=== PATIENT | male | born 1945 | race Two or more races ===

== ENCOUNTER 2024-09-04 19:21 | Inpatient (IN) | payer MEDICARE, MEDICAID, SELFPAY ==
[2024-09-04] VITALS (8 sets, daily range): BP systolic 95–158; BP diastolic 49–109; PULSE 58–78; RESP 6–18; TEMP 36.9–37; O2SAT 94–100; BMI 25.7
--- NOTE | 2024-09-04 19:22 | EKG_ITS ---
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
--- NOTE | 2024-09-04 19:22 | XR_ITS ---
Examination: CT brain head without contrast. 2-D sagittal coronal reconstructions Date and time of exam:September 04, 2024 1927 hours Comparison July 05, 2012 INDICATIONS: Stroke alert, altered mental status today onset focal neurologic deficit CTDI: vol (mGy):53.8 DLP: (mGycm):1123 Technique: Multiple CT axial sections of the brain have been obtained, 5 mm slice thickness. Contrast has not been administered. 2-D sagittal, coronal reconstructions have been obtained Low dose protocols were performed. One or more of the following dose reduction techniques were used; automated exposure control, adjustment of the mA and/or KV according to patient size, use of iterative reconstruction technique. Findings: No significant ventricular enlargement. Intra-axial or extra-axial hemorrhage density is not seen. No mass effect or midline shift Basal cisterns are not remarkable. Fourth ventricle is midline. Cranial vault intact. Impression: Negative for acute hemorrhage, mass effect or midline shift
--- NOTE | 2024-09-04 19:22 | PD.EDNEURO ---
Neuro Symptoms Deficit-RME/HPI General Chief Complaint: Altered Mental Status Stated Complaint: STROKE Time Seen by Provider: 09/04/24 19:22 Source: EMS Arrival date/time: 09/04/24 19:21 Mode of arrival: EMS Limitations: altered mental status RME / HPI RME / HPI Narrative: Dr. Brown?s Main ED Evaluation: 78-year-old male with h/o DM2, HTN, HLD, Parkinson's disease who presents to the ER with chief complaint of neurological symptoms. Per EMS, family reported patient is GCS of 15 at baseline. At 1800 today, patient reported he was feeling unwell and was asking for his . About 20 minutes later, he had urinary incontinence and mentation become altered with GCS of 3. EMS reports BP reading of 220/120 on scene. Complete HPI/ROS is unobtainable secondary to patient's altered mental status. Related Data Previous Rx's ?Medication ?Instructions ?Recorded librium 25mg 1 tab PO tid/prn alcohol w/d ##30 07/05/12 Allergies Allergy/AdvReac Type Severity Reaction Status Date / Time NKA Allergy Unknown Uncoded 09/04/24 19:30 Review of Systems Review of Systems ROS Unobtainable: unobtainable due to mental status ED Exam Narrative Physical exam: Examination: BP(220/118),?Pulse(77),?Blood Glucose(379) 1A: Level of Consciousness - Alert; keenly responsive?+ 0 1B: Ask Month and Age - 1 Question Right?+ 1 1C: Blink Eyes & Squeeze Hands - Performs Both Tasks?+ 0 2: Test Horizontal Extraocular Movements - Normal?+ 0 3: Test Visual Castelan - Complete Hemianopia?+ 2 4: Test Facial Palsy (Use Grimace if Obtunded) - Normal symmetry?+ 0 5A: Test Left Arm Motor Drift - Drift, but doesn't hit bed?+ 1 5B: Test Right Arm Motor Drift - Drift, but doesn't hit bed?+ 1 6A: Test Left Leg Motor Drift - Amputation/Joint Fusion?+ 0 6B: Test Right Leg Motor Drift - Drift, but doesn't hit bed?+ 1 7: Test Limb Ataxia (FNF/Heel-Brooke) - Does Not Understand?+ 0 8: Test Sensation - Normal; No sensory loss?+ 0 9: Test Language/Aphasia - Normal; No aphasia?+ 0 10: Test Dysarthria - Mild-Moderate Dysarthria: Slurring but can be understood?+ 1 11: Test Extinction/Inattention - No abnormality?+ 0 NIHSS Score:?7 GENERAL APPEARANCE: Primary survey: patient has severe resting tremor. He is conscious but nonverbal. He does not track me with his eyes. Secondary survey: after patient was given ativan, the tremor resolved. He appears somewhat sedated from the 2 ativan he received. Patient has left BKA with prosthesis. VITALS: All vitals were reviewed and the pulse ox is 100% on room air, which is normal according to my interpretation. HEENT: Normocephalic, atraumatic; pupils equal, round, reactive to light; EOMI; mucous membranes pink, moist; oropharynx clear NECK: Supple LUNGS: CTABL; no wheezes, no rales, no rhonchi HEART: Regular rate, regular rhythm; normal S1, S2; no murmurs ABDOMEN: non distended; normal BS; soft, no tenderness, no guarding, no rebound; no masses, no organomegaly, no hernia BACK: no CVA tenderness EXTREMITIES: atraumatic; no edema NEUROLOGIC: Primary survey: patient has severe resting tremor. He is conscious but nonverbal. He does not track me with his eyes. Secondary survey: after patient was given ativan, the tremor resolved. He appears somewhat sedated from the 2 ativan he received. PSYCHIATRIC: appropriate mood and affect SKIN: warm, dry, normal color; no rashes General Limitations: Present altered mental status Course Course Course Narrative: 1919 Stroke alert paged overhead 2007 Repeat blood pressure is 126/62 Quality Measures Suspected type of Stroke: Unknown at this time Last known well (date): 09/04/24 Last known well (time): 18:00 Tenecteplase given: Reason(s) TPA not given: Uncontrolled BP not given stroke and none Orders Category Date Time Status Bedside Blood Glucose NOW Care 09/04/24 19:22 Active Hemodialysis Lab Technician NOW Care 09/04/24 19:22 Active Continuous Pulse Oximetry NOW Care 09/04/24 19:22 Active EKG (ED ONLY) *Do not use* NOW Care 09/04/24 19:22 Completed In and Out Catheter NEEDED Care 09/04/24 19:22 Active Insert IV NOW Care 09/04/24 19:22 Active NIH Stroke Scale now Care 09/04/24 19:22 Active NPO NOW Care 09/04/24 19:22 Active Nurse Swallow Screen x1 Care 09/04/24 19:22 Active Consult to Neurology / Tele-Neurology Routine Cons 09/04/24 19:22 Active Consult to Neurology / Tele-Neurology Routine Cons 09/04/24 19:[address] angio stroke protocol Stat Exams 09/04/24 19:[address] stroke protocol Stat Exams 09/04/24 19:22 Completed EKG (ED Only) Stat Exams 09/04/24 19:22 Draft B-Type Natriuretic Peptide Stat Lab 09/04/24 19:25 Completed CBC Stat Lab 09/04/24 19:25 Completed Comprehensive Metabolic Panel Stat Lab 09/04/24 19:25 Results Drug Screen,Urine Stat Lab 09/04/24 19:22 Ordered Free T4 (Free Thyroxine) Stat Lab 09/04/24 21:02 Ordered HCG Titer if Positive Stat Lab 09/04/24 19:25 Results Magnesium Stat Lab 09/04/24 19:25 Results Partial Thromboplastin Time Stat Lab 09/04/24 19:25 Completed Prothrombin Time with INR Stat Lab 09/04/24 19:25 Completed Troponin I Stat Lab 09/04/24 19:25 Results Urinalysis Stat Lab 09/04/24 19:22 Ordered Urine Culture Stat Lab 09/04/24 19:22 Ordered Aspirin Med 09/04/24 20:21 Discontinued 325 mg PO X1 ONE LORazepam [Ativan Inj] Med 09/04/24 19:39 Active 2 mg IVP PRN PRN Oxygen Delivery NOW RT 09/04/24 19:22 Active Vital Signs Vital signs: Vital Signs Temperature 98.6 F 09/04/24 20:19 Pulse Rate 72 09/04/24 20:19 Respiratory Rate 18 09/04/24 20:19 Blood Pressure 158/109 H 09/04/24 20:19 Pulse Oximetry (%) 100 09/04/24 20:19 Oxygen Delivery Method Room Air 09/04/24 20:19 Neuro Symptoms / Deficit MDM Narrative MDM Narrative:: 78-year-old male with history of DM2, HTN, HLD, Parkinson's who presents to ER via EMS for neurological symptoms. Family reports at baseline patient has GCS of 15 however upon EMS arrival he had GCS of 3. LKWT was approximately 1800. Narcan was administered without improvement. Family denies any history of narcotic use. Patient was immediately seen by me upon arrival and I assessed the patient in the ambulance bay. After my assessment, I initiated stroke protocol and it was paged overhead. Patient was then taken to radiology STAT per stroke protocol. Initial work-up includes IV access, continuous cardiac monitoring, EKG, stroke scale, bedside blood glucose check, I&O cath, NPO, nurse swallow screen, teleneuro consultation, imaging including CTA head/neck and head CT, labs such as UDS, PTT, PT with INR, troponin, BNP, CBC, CMP, HCG titer, magnesium, UA with FACILITY ENVIRONMENTAL TECHNICIAN, and respiratory therapy. Medications initiated include lorazepam. Manual EKG taken at 2008 shows severe motion artifact due to patient's resting tremor, normal sinus rhythm at 76 bpm, left axis deviation, no ectopy, no acute signs of ischemia, according to my interpretation. 1949 Teleneuro is at bedside with daughter for consultation. NIHSS Score:?7. 2002 Received t/c from teleneurologist, Dr. Elif Laughlin, who states given the patient's presentation and history, this may be metabolic. Advised for inpatient admission for observation, EEG and possible MRI. Case to be discussed with hospitalist for admission. 2034 Case d/w Belinda Higgins who accepts the patient for inpatient admission. Scribe Attestation: I, Mikaela Murguia, am scribing for and in the presence of Dr. Brown. Provider Notation: Although this document has been carefully reviewed, there may still be some phonetic and other typographical errors. These errors are purely grammatical due to imperfections in the software program and should not be construed in any way to compromise the substance of the patient's medical care during this visit. Patient data External records reviewed:: None Clinical information provided by:: EMS Social determinants that could affect healthcare access:: none Patient has the following chronic illnesses:: HTN. DM2, HLD, Parkinson's Disease How is presenting disease/condition affected by chronic disease/condition?: uneffected by Evaluation data The following diagnostics were reviewed and interpreted by me:: lab results, radiology exam(s) and EKG tracing(s) Lab and/or radiology exams considered but not ordered:: n/a Interpretation Summary: I personally reviewed the radiology data and agree with the radiologist's interpretation. Examination: CT brain head without contrast. Date and time of exam:September 04, 2024 1927 hours Comparison July 05, 2012 INDICATIONS: Stroke alert, altered mental status today onset focal neurologic deficit Findings: No significant ventricular enlargement. Intra-axial or extra-axial hemorrhage density is not seen. No mass effect or midline shift Basal cisterns are not remarkable. Fourth ventricle is midline. Cranial vault intact. Impression: Negative for acute hemorrhage, mass effect or midline shift Examination: CTA carotids with intravenous contrast; CTA brain, head with intravenous contrast. Exam date and time: September 04, 20241926 hours INDICATIONS: Stroke alert, onset focal neurologic deficit uncontrollable movement today altered mental status Findings: Heavy calcification right carotid bifurcation, 40-60% stenosis right carotid bifurcation origin right internal carotid artery Heavy calcification left carotid bifurcation, 60-80% stenosis left carotid bifurcation and origin left internal carotid artery Codominant vertebral arteries with no critical stenoses Intracranial vertebral arteries and basilar artery posterior cerebral branches show no large vessel occlusions Very heavy calcification juxtasellar internal carotid arteries bilateral with 50-70% stenosis No large vessel occlusions involving M1 segments middle cerebral arteries middle cerebral artery trifurcation vessels or anterior cerebral arteries IMPRESSION: 40-60% stenosis right carotid bifurcation origin right internal carotid artery 60-80% stenosis left carotid bifurcation origin left internal carotid artery Bilateral 50-70% stenosis juxtasellar internal carotid arteries No cerebral large vessel arterial occlusions or thromboses Medications / Prescriptions Medications or Prescriptions considered but not ordered:: n/a Medication administrations:: Medication Administration History Lorazepam (Lorazepam 2 Mg/Ml Vial) 2 mg IVP PRN PRN PRN Reason: Seizure Activity Stop: 09/09/24 19:38 Last Admin: 09/04/24 20:39 Dose: 2 mg Documented By: LUCY Discontinued Medications Aspirin (Aspirin 325 Mg Tablet) 325 mg PO X1 ONE Stop: 09/04/24 20:22 Last Admin: 09/04/24 20:38 Dose: 325 mg Documented By: LUCY as above, if any Consultations Consultation(s) initiated? (list below): Yes Consultation #1 (Physician, Specialty, Details): See MDM Diagnosis Neuro Differential Diagnosis: other (Hemorrhagic CVA, Ischemic CVA, SDH, Seizure) Most likely diagnosis given after review of the tests above:: See clinical impression below Admission Indicated Admission indicated?: indicated Admission Request Was there a request for admission?: Yes Admission Attestation Admission request attestation: Discussed case with [] from Hospitalist service regarding admission. Discussed patients ED course, exam findings, labs, and radiology results. The Hospitalist [agrees,declines] to accept the patient for admission. Disposition Plan Disposition Plan: Admit Critical Care Time Critical Care Time Critical Care Time: Yes Total Critical Care Time (min.): 45 Attestation: The high probability of sudden, clinically significant deterioration in the patient?s condition required the highest level of my preparedness to intervene urgently. ? The services I provided to this patient were to treat and/or prevent clinically significant deterioration. Services included the following: chart data review, reviewing nursing notes and/or old charts, documentation time, storage management consultant collaboration regarding findings and treatment options, medication orders and management, direct patient care, vital sign assessments and ordering, interpreting and reviewing diagnostic studies and lab tests. ? Aggregate critical care time includes only time during which I was engaged in work directly related to the patient?s care, as described above, whether at bedside or elsewhere in the Emergency Department. It did not include time spent performing other reported procedures or the services of residents, students, nurses or physician assistants. Discharge Plan Plan Patient Disposition: Admit Acute Care w/in Hospital Prescriptions/Referrals Prescriptions/Med Rec: No Action librium 25mg 1 tab PO tid/prn alcohol w/d Qty: 30 0RF Referrals: No Primary/Family,Physician [Primary Care Provider] - In 1 week Problem List Clinical Impression: Seizures Patient/Caregiver Discharge Instructions Print Language: Lithuanian Stand Alone Forms: Eva Award Info., Patient Portal Info Letter
--- NOTE | 2024-09-04 19:23 | XR_ITS ---
Examination: CTA carotids with intravenous contrast CTA brain, head with intravenous contrast. 2-D sagittal, coronal reconstructions. 3-D reconstructions. Exam date and time: September 04, 2024, 192 hours INDICATIONS: Stroke alert, onset focal neurologic deficit uncontrollable movement today altered mental status CTDI: vol (mGy) 25.9 DLP: (mGycm) 503 Technique: Multiple CTA axial brain, head carotid images post intravenous contrast injection 75 cc, [id number]. 2-D sagittal, coronal reconstructions. 3-D reconstructions, 3-D post processing including vascular maximum intensity projection images. Low dose protocols were performed. One or more of the following dose reduction techniques were used; automated exposure control, adjustment of the mA and/or KV according to patient size, use of iterative reconstruction technique. Findings: Heavy calcification right carotid bifurcation, 40-60% stenosis right carotid bifurcation origin right internal carotid artery Heavy calcification left carotid bifurcation, 60-80% stenosis left carotid bifurcation and origin left internal carotid artery Codominant vertebral arteries with no critical stenoses Intracranial vertebral arteries and basilar artery posterior cerebral branches show no large vessel occlusions Very heavy calcification juxtasellar internal carotid arteries bilateral with 50-70% stenosis No large vessel occlusions involving M1 segments middle cerebral arteries middle cerebral artery trifurcation vessels or anterior cerebral arteries IMPRESSION: 40-60% stenosis right carotid bifurcation origin right internal carotid artery 60-80% stenosis left carotid bifurcation origin left internal carotid artery Bilateral 50-70% stenosis juxtasellar internal carotid arteries No cerebral large vessel arterial occlusions or thromboses
--- NOTE | 2024-09-04 19:24 | PC.NURSE ---
Tele neuro case # [id number]
[2024-09-04 19:41] LABS: Basophils % (Auto) 1 % (0-2.5); Eosinophils # (Auto) 0.2 Thou/mm3 (0.0-0.5); Eosinophils % (Auto) 3 % (0-10); Hematocrit 30.9 % (41.0-53.0); Hemoglobin 11.1 g/dL (13.5-16.0); Immature Granulocytes % (Auto) 0 % (0-0); Immature Granulocytes Auto 0.01 Thou/mm3 (0.00-0.00); Lymphocytes % (Auto) 31 % (10-50); Mean Corpuscular HGB Conc 35.9 g/dl (31.0-37.0); Mean Corpuscular Volume 86 fL (80-100); Monocytes # (Auto) 0.3 Thou/mm3 (0.0-0.8); Monocytes % (Auto) 5 % (0-12); Neutrophils # (Auto) 3.8 Thou/mm3 (1.8-7.7); Neutrophils % (Auto) 60 % (37-80); Nucleated Red Blood Cell % 0 /100 WBC (0); Platelet Count 217 Thou/mm3 (140-440); RDW Standard Deviation 38.7 fL (35.1-43.9); Red Blood Count 3.58 Miln/mm3 (4.50-5.90); White Blood Count 6.4 Thou/mm3 (3.8-10.6)
[2024-09-04 19:55] LABS: Partial Thromboplastin Time 25.4 Seconds (22.0-36.0); Prothrombin Time 11.2 Seconds (9.0-12.2)
[2024-09-04 20:02] LABS: Alanine Aminotransferase 13 U/L (10-49); Albumin, Serum 3.9 gm/dL (3.4-4.8); Albumin/Globulin Ratio 1.6 (1.2-2.2); Alkaline Phosphatase 74 U/L (46-116); Anion Gap 9 (7-16); Aspartate Amino Transferase 16 U/L (0-34); BUN/Creatinine Ratio 17 Ratio (12-20); Bilirubin,Total 0.5 mg/dL (0.3-1.2); Blood Urea Nitrogen 27 mg/dL (9-23); Calcium 9.3 mg/dL (8.3-10.6); Calcium (Corrected) 9.4 mg/dL (8.5-10.1); Carbon Dioxide 24.3 mMol/L (20.0-31.0); Chloride 101 mMol/L (98-107); Creatinine (Component) 1.6 mg/dL (0.6-1.3); Globulin 2.5 gm/dL (2.3-3.5); Glucose 386 mg/dL (74-106); Magnesium 2.1 mg/dL (1.6-2.6); Osmolality,Calculated 289 (275-295); Potassium 4.3 mMol/L (3.4-5.1); Sodium 134 mMol/L (136-145); Total Protein 6.4 gm/dL (5.7-8.2); Troponin I < 0.020 ng/mL (0.0-0.045); eGFR 44 See Note
[2024-09-04 20:06] LABS: B-Type Natriuretic Peptide 115 pg/mL (0-100)
--- NOTE | 2024-09-04 20:16 | ESCONSULT_ITS ---
Tele Neuro Consultation Consultation Date 09/04/24 Laboratory-Coagulation Panel PT 11.2 Seconds (9.0-12.2) 09/04/24 19:25 INR 1.0 (0.9-1.3) 09/04/24 19:25 APTT 25.4 Seconds (22.0-36.0) 09/04/24 19:25 Consultation Narrative [facility] Consult [facility] Patient Name:???Henrry Cruz Date of :???1945 Identification Number:??? Date of Service:???09/04/2024 19:24:15 Diagnosis:?G93.49 - Encephalopathy Multifactorial Impression: ?Patient presented with acute altered mental status, GCS drop from 15 to 4- 5, and possible seizure activity. Initial examination revealed left pupil abnormality, hyperglycemia (blood sugar 379, 480), hypertension (220/118), and hypoxia (O2 sat 59-60%). History significant for Parkinson's disease, diabetes, hypertension, and hyperlipidemia. Differential diagnosis includes toxic metabolic encephalopathy secondary to severe hyperglycemia, seizure disorder, and less likely, acute stroke/TIA. Patient demonstrated improvement in mental status during evaluation, becoming responsive and reporting whole body pain. Neurological exam showed bilateral movement of extremities and ability to follow commands. CT head was performed no acute events, CTA pending for official reports. Patient has a left leg amputation. Our recommendations are outlined below. Recommendations: ? Stroke/Telemetry Floor ? Neuro Checks ? Bedside Swallow Eval ? DVT Prophylaxis ? IV Fluids, Normal Saline ? Head of Bed 30 Degrees ? Euglycemia and Avoid Hyperthermia (PRN Acetaminophen) ? Initiate or continue Aspirin 81 MG daily Sign Out: ? Discussed with Emergency Department Provider Advanced Imaging:Advanced imaging has been ordered. Results pending. Metrics: Last Known Well: 09/04/2024 18:00:00 Dispatch Time: 09/04/2024 19:24:15 Arrival Time: 09/04/2024 19:21:00 Initial Response Time: 09/04/2024 19:25:55Symptoms: AMS. Initial patient interaction: 09/04/2024 19:47:04 NIHSS Assessment Completed: 09/04/2024 19:55:00Patient is not a candidate for Thrombolytic. Thrombolytic Medical Decision: 09/04/2024 19:55:00Patient was not deemed candidate for Thrombolytic because of following reasons: Resolved symptoms . Seizure at onset with postictal residual neurological impairments . CT head showed no acute hemorrhage or acute core infarct. Primary Provider Notified of Diagnostic Impression and Management Plan on: 09/04/2024 20:00:49 History of Present Illness:Patient is a 78 year old Male. Patient was brought by EMS for symptoms of AMS. The patient, Mr. Cruz, presented with altered mental status and possible seizure activity. At approximately 1800 hours, he began feeling unwell, became altered, and asked for his who was present. He then laid down, urinated on himself, and his [place] Coma Scale (GCS) dropped from his baseline of 15 to 4- 5, becoming unresponsive. 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 His initial vital signs showed a blood sugar of 379, blood pressure of 220/118, oxygen saturation of 91%, and heart rate of 77. The patient's child reported that around 1800, the patient became agitated, screaming, and being loud, which was noted as unusual behavior. The son checked the patient's blood sugar, which was 480, and administered 12 units of insulin. The patient continued to be agitated, stating he didn't want to be there anymore and requesting to be taken to the hospital before losing consciousness. The patient regained consciousness and reported experiencing whole body pain. He described feeling like he was drowning and stated that he sometimes experiences strong headaches and body pain that makes him cry. The patient also reported a new tremor that doesn't go away and difficulty sitting down at times. He mentioned feeling weak and having trouble feeding himself, stating that he feels hungry but lacks the strength to chew food. The patient's past medical history is significant for Parkinson's disease, diabetes, hypertension, and hypercholesterolemia. He has a history of frequent falls and reports having had a lot of ?seizures in the past, though he is not currently taking any anti-epileptic medications. 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 ? Past Medical History: ?Hypertension ?Diabetes Mellitus ?Hyperlipidemia Other PMH:? Parkinson unable to obtain due to:?? Patient Is Confused Medications: No Anticoagulant use? No Antiplatelet use Reviewed EMR for current medications Allergies:? Reviewed Allergies Unable To Obtain Due To:?Patient Is Confused Social History: Unable To Obtain Due To Patient Status :?Patient Is Confused Family History: Family History Cannot Be Obtained Because:Patient Is Confused ROS :?ROS Cannot Be Obtained Because:? Patient Is Confused Past Surgical History: Past Surgical History Cannot Be Obtained Because: Patient Is Confused There Is No Surgical History Contributory To Today?s Visit ? Examination: BP(220/118),?Pulse(77),?Blood Glucose(379) 1A: Level of Consciousness - Alert; keenly responsive?+ 0 1B: Ask Month and Age - 1 Question Right?+ 1 1C: Blink Eyes & Squeeze Hands - Performs Both Tasks?+ 0 2: Test Horizontal Extraocular Movements - Normal?+ 0 3: Test Visual Castelan - Complete Hemianopia?+ 2 4: Test Facial Palsy (Use Grimace if Obtunded) - Normal symmetry?+ 0 5A: Test Left Arm Motor Drift - Drift, but doesn't hit bed?+ 1 5B: Test Right Arm Motor Drift - Drift, but doesn't hit bed?+ 1 6A: Test Left Leg Motor Drift - Amputation/Joint Fusion?+ 0 6B: Test Right Leg Motor Drift - Drift, but doesn't hit bed?+ 1 7: Test Limb Ataxia (FNF/Heel-Brooke) - Does Not Understand?+ 0 8: Test Sensation - Normal; No sensory loss?+ 0 9: Test Language/Aphasia - Normal; No aphasia?+ 0 10: Test Dysarthria - Mild-Moderate Dysarthria: Slurring but can be understood?+ 1 11: Test Extinction/Inattention - No abnormality?+ 0 NIHSS Score:?7 Pre-Morbid Modified Regino Scale:Unable to assess Spoke with :?LAURENCE Salazar This consult was conducted in real time using interactive audio and video technology. Patient was informed of the technology being used for this visit and agreed to proceed. Patient located in hospital and provider located at home/office setting. Patient is being evaluated for possible acute neurologic impairment and high probability of imminent or life-threatening deterioration. I spent total of 45 minutes providing care to this patient, including time for face to face visit via telemedicine, review of medical records, imaging studies and discussion of findings with providers, the patient and/or family. Dr Elif Laughlin [facility] For Inpatient follow-up with [facility] physician please call [facility] at . As we are not an outpatient service for any post hospital discharge needs please contact the hospital for assistance. If you have any questions for the [facility] physicians or need to reconsult for clinical or diagnostic changes please contact us via [facility] at .
[2024-09-04] MEDS: Aspirin 325 MG TABLET PO (20:38)
[2024-09-04] MEDS: LORazepam 2 MG/ML VIAL IVP (20:39)
[2024-09-04 21:57] LABS: HCG Titer if Positive Negative
--- NOTE | 2024-09-04 22:39 | PD.RESHP ---
Documentation for date of: 09/04/24 [facility] History of Present Illness Chief complaint: altered mental status History of present illness: The patient is a 78-year-old male with a previous medical history of type 2 diabetes, hypertension, hypothyroidism, Parkinson's disease who was brought in due to altered mental status daughter at the bedside she reports that the patient started to report pain in his whole body, reported feeling unwell at approximately 6 PM, approximately 20 minutes later he had an episode of urine incontinence, became altered. EMS was called, patient had GCS of 3, blood pressure 200/120, he also had a high blood sugar over 400, family member gave him Lantus 12 units. In the ED initially had blood pressure 220/120, Narcan was given without improvement. Stroke alert was called, CT head was negative for intracranial bleed, fracture, acute stroke, CTA was negative for large vessel occlusion. Teleneuro was consulted, differential diagnosis is acute encephalopathy of toxic or metabolic nature, acute stroke less likely. Patient was also given lorazepam 2 mg. EKG showed sinus rhythm, heart rate 76. According to the daughter, in the ED patient came back to his baseline, but still sleepy after Ativan. Per daughter, he is usually AOx3. She also endorsed that he has chronic diarrhea after eating dairy. Labs: WBC 6.4, hemoglobin 11.1, sodium 134, potassium 4.3, BUN 27, creatinine 1.6, EGFR 44, glucose 384, magnesium 2.1, BNP 115. U tox, UA is pending. Patient is being admitted to the hospital for acute encephalopathy and stroke rule out. Social history: denies recent alcohol use, drugs. According to the daughter, he used to use crack cocaine approximately 10 years ago. Surgical history: R sided foot amputation, L sided BKA. Medications: Folic acid 1 mg, vitamin D, insulin glargine 14 units at bedtime, lispro sliding scale, levothyroxine 75 mcg, metformin 1000 twice daily, tamsulosin 0.4 p.o. daily. Review of Systems Review of Systems ROS Unobtainable: unobtainable due to mental status Past Medical History Past Medical History NEUROLOGIC: Positive Parkinson's Disease CARDIAC: Positive Hypertension GENITOURINARY: Positive Genitourinary Disorders (urinary retention) ENDOCRINE: Positive Endocrine Disorders, Diabetes Mellitus Type 2 and Hypothyroidism Exam Vital Signs Temp Pulse Resp BP Pulse Ox O2 Del Method 98.6 F 78 18 158/109 H 100 Room Air 09/04/24 20:19 09/04/24 22:14 09/04/24 20:19 09/04/24 20:19 09/04/24 20:19 09/04/24 20:19 Narrative Exam Physical Exam General: Somnolent. AOx1. HEENT: Normocephalic, atraumatic, mucous membranes moist. Heart: Regular rate and rhythm, no murmurs. Lungs: Clear to auscultation with no wheezing or crackles. Abdomen: Soft, nondistended, nontender, positive bowel sounds. ?No guarding or rebound tenderness. Neurologic: Alert and oriented x1, no gross neurological deficit, and patient able to move all 4 extremities. Extremities: LEft sided BKA, right sided foot amputation. Skin: No rash or ecchymoses. Results: Labs 09/04/24 19:25 09/04/24 19:25 Labs: Short CBC 09/04/24 Range/Units 19:25 WBC 6.4 (3.8-10.6) Thou/mm3 Hgb 11.1 L (13.5-16.0) g/dL Hct 30.9 L (41.0-53.0) % Plt Count 217 (140-440) Thou/mm3 BMP 09/04/24 19:25 Sodium 134 L Potassium 4.3 Chloride 101 Carbon Dioxide 24.3 BUN 27 H Creatinine 1.6 H Glucose 386 H Calcium 9.3 Cardiac Enzymes 09/04/24 Range/Units 19:25 Troponin I < 0.020 (0.0-0.045) ng/mL Liver Function 09/04/24 Range/Units 19:25 Total Bilirubin 0.5 (0.3-1.2) mg/dL AST 16 (0-34) U/L ALT 13 (10-49) U/L Alkaline Phosphatase 74 (46-116) U/L Albumin 3.9 (3.4-4.8) gm/dL Quality Measures Quality Measures stroke Suspected type of Stroke: Unknown at this time Last known well (date): 09/04/24 Last known well (time): 18:00 Tenecteplase given: Reason(s) Tenecteplase not given: Uncontrolled BP not given Rehab services: Speech Language Pathology eval ordered VTE Prophylaxis: pharmaceutical Antithrombotic by day 2:: ordered Statin ordered: >75 y/o moderate or high intensity dose Anticoagulation ordered for A-fib or flutter (current or hx): not indicated and none Advance care planning discussed with:: child Medications Home Medications and Allergies Home Medications ?Medication ?Instructions ?Recorded ?Confirmed ?Type ergocalciferol (vitamin D2) 1,250 1,250 mcg PO QDAY 09/04/24 09/04/24 History mcg (50,000 unit) capsule (Vitamin D2) folic acid 1 mg tablet 1 mg PO QDAY 09/04/24 09/04/24 History hydroxyzine HCl 25 mg tablet 25 mg PO BID 09/04/24 09/04/24 History insulin glargine 100 unit/mL (3 14 unit subcut QPM 09/04/24 09/04/24 History mL) subcutaneous pen (Lantus Solostar U-100 Insulin) insulin lispro 100 unit/mL 1 sliding scale dose subcut 09/04/24 09/04/24 History subcutaneous pen (Humalog KwikPen USEASDIRECTD (U-100) Insulin) levothyroxine 75 mcg tablet 75 mcg PO QDAY 09/04/24 09/04/24 History (Euthyrox) metformin 1,000 mg tablet 1,000 mg PO BID 09/04/24 09/04/24 History tamsulosin 0.4 mg capsule 0.4 mg PO QDAY 09/04/24 09/04/24 History Allergies Allergy/AdvReac Type Severity Reaction Status Date / Time NKA Allergy Unknown Uncoded 09/04/24 19:30 Visit Medications Acetaminophen (Acetaminophen 325 Mg Tablet) 650 mg PO Q6H PRN PRN Reason: Fever >100.3 or pain 1-3 Stop: 10/04/24 21:56 Aspirin (Aspirin Ec 81 Mg Tabec) 81 mg PO QDAY KAYLA Stop: 10/05/24 08:59 Dextrose (Dextrose 50%-Water Inj 50 Ml Syringe) 25 ml IV Q15MIN PRN PRN Reason: BG 50-70 responsive npo pt Stop: 10/04/24 22:12 Dextrose (Dextrose 50%-Water Inj 50 Ml Syringe) 50 ml IV Q15MIN PRN PRN Reason: BG <50 OR BG <70 & pt unresponsive Stop: 10/04/24 22:12 Heparin Sodium (Porcine) (Heparin Sod Inj 5000 Unit/Ml Vial) 5,000 unit SC Q8HR KAYLA Stop: 09/18/24 21:59 Insulin Glargine (Insulin Glargine (Lantus) 5 Unit/0.05 Ml (Per 5 Units)) 7 unit SC HS KAYLA Stop: 10/04/24 22:14 Insulin Human Lispro (Insulin Lispro (Admelog) 1 Unit/0.01 Ml Unit) 0 unit SC Q6HR KAYLA; Protocol Stop: 10/05/24 00:00 Levothyroxine Sodium (Levothyroxine Sodium 25 Mcg Tablet) 75 mcg PO ACBR KAYLA Stop: 10/05/24 05:59 Lorazepam (Lorazepam 2 Mg/Ml Vial) 2 mg IVP PRN PRN PRN Reason: Seizure Activity Stop: 09/09/24 19:38 Last Admin: 09/04/24 20:39 Dose: 2 mg Ondansetron HCl (Ondansetron Inj 2 Mg/Ml Inj 2 Ml) 4 mg IV Q6H PRN; Protocol PRN Reason: NAUSEA OR VOMITING Stop: 10/04/24 21:56 Sennosides (Senna Tablet) 1 tab PO QDAY PRN; Protocol PRN Reason: constipation Stop: 10/04/24 21:56 Tamsulosin HCl (Tamsulosin Hcl 0.4 Mg Capsule) 0.4 mg PO QDAY KAYLA Stop: 10/05/24 08:59 Discontinued Medications Aspirin (Aspirin 325 Mg Tablet) 325 mg PO X1 ONE Stop: 09/04/24 20:22 Last Admin: 09/04/24 20:38 Dose: 325 mg Assessment & Plan Plan The patient is a 78-year-old male with a previous medical history of type 2 diabetes, hypertension, hypothyroidism, Parkinson's disease who was brought in due to altered mental status. Patient is being admitted to the hospital for acute encephalopathy and stroke tule out. #Acute encephalopathy #Stroke rule out #Altered mental status DDx: Metabolic vs toxic encephalopathy vs acute stroke Patient had an episode of altered mentation when he reported feeling pain and being unwell, then became non-responsive with GCS of 3. In the ED his mental status has improved. He also received Ativan IV. CT head negative for stroke, intracranial bleeding. CTA negative for LVO. Teleneuro consulted, appreciate recommendations. Plan: -Telemetry Floor -Neuro Checks q 4 hr -Bedside Swallow Eval -DVT Prophylaxis -Head of Bed 30 Degrees -Maintain euglycemia and avoid hyperthermia (PRN Acetaminophen) - Aspirin 81 MG daily - B12, TSH, folate, A1c - Utox ordered - Blood alcohol level - Dr. Montoya consulted # Hypertensive urgency versus emergency Initial BP was >200, then went down to 136/49 without intervention Plan: -Antihypertensives on hold for now due to normal BP #Type 2 diabetes Patient at home is on Lantus 14U and sliding scale lispro. Plan: - glargine 7 U HS daily - Insulin sliding scale intial step, adjust as needed - hypoglycemia protocol - A1c #Hypothyroidism Plan: - resumed home levothyroxin #History of urine retention Most likely in the setting of BPH. Plan: - resumed home tamsulozin #Possible history of Parkinson's disease Patient's daughter reported that he's been having tremors, that recently increased. Does not take levodopa, dopamin agonists. Plan: - continue to monitor - neurology consult Health maintenance: FEN: NPO until passes swallow screen DVT prophylaxis: heparin sc GI prophylaxis: none Dispo: telemetry CODE STATUS: Full code Plan of care discussed with attending Dr. Orta, PGY-[address] Escobar. Belinda Rae MD, PGY 1. Attending Provider Attestation/Addendum I attest that I was physically present for the evaluation, physical examination, lab and imaging review of the patient with the residents. I discussed the case with the residents and agree with the findings and plans of care as documented above. Patient is a 78 years old male with past medical history of diabetes, hypertension, hypothyroidism, Parkinson's disease who presented to the ED with complaint of altered mental status. Patient is sleepy and unable to provide history, HPI was obtained from the daughter at bedside. As per the daughter, patient complains of generalized pain and feeling unwell all the time. He complained the same today as well but around the evening, he had changed behavior, continued to complain of feeling unwell, had episode of urinary incontinence which is also chronic. On arrival of EMS, he was found to have high blood pressure, GCS of 3, very high blood glucose. Patient received his Lantus dosing at home but has run out of his short acting insulin. In the ED, his blood pressure was 220/120. Rest of the vitals were within normal limits. Stroke alert was called, head CT was obtained negative for acute hemorrhage, mass effect or midline shift. CTA head and neck was negative for intracranial large vessel occlusion. Teleneurology was consulted, who suspected acute encephalopathy from toxic metabolic causes rather than stroke. As per the patient's daughter, patient came back to his baseline mentation. He later received lorazepam 2 mg for tremor and anxiety following which she became sleepy again. Lab results show hemoglobin of 11.1, BUN/creatinine of 27/1.6, glucose 384. Patient was unable to participate in examination due to somnolence. We will admit the patient for management of acute encephalopathy and to rule out stroke. We will start him on aspirin, statin. We will obtain B12, folate, TSH, urine toxicology, blood alcohol and neurology consult. We will keep him n.p.o., once patient is more awake and able to complete bedside swallow, we will plan for restarting diet. Patient's blood pressure improved significantly without any antihypertensives, we will hold off on antihypertensives for now. We will also start him on insulin regimen for diabetes and hyperglycemia. Coby Orta MD
[2024-09-04] MEDS: HEPARIN SOD INJ 5000 UNIT/ML VIAL SC (22:49)
[2024-09-05] VITALS (7 sets, daily range): BP systolic 114–167; BP diastolic 60–81; PULSE 59–70; RESP 10–26; TEMP 36.2–37.1; O2SAT 95–100; BMI 23.1
--- NOTE | 2024-09-05 | XR_ITS ---
Examinations: MRI Brain without intravenous contrast. MRA brain without intravenous contrast. MRA carotids without intravenous contrast 3-D vascular reconstructions Date and time of exam: September 05, 2024 at 1915 hours INDICATIONS: Stroke September 04 2024, altered mental status Technique: Multiple axial and sagittal images of the brain have been obtained MRA brain carotid images without contrast obtained, including 3-D postprocessing, vascular maximum intensity projection images Findings: [place] is not enlarged. The optic chiasm and infundibular stalk are not remarkable. Prepontine and interpeduncular cisterns are not enlarged. No localized enlargement of the medulla or osmin. Fourth ventricle and cerebellar tonsils normal in position. Subacute hemorrhage is not seen. Fourth ventricle is midline. Mass in the cerebellopontine angle region is not evident. 7th and 8th nerve complexes exhibits symmetry. Globes are symmetrical with no retro-orbital mass. Increased white matter signal prominent Diffusion-weighted images demonstrate no focus of restricted diffusion Mass-effect upon the ventricular system is not identified. MRA carotid images degraded by patient motion. MRA brain images degraded by patient motion Impression: Negative for acute hemorrhage mass effect or midline shift. No acute infarct
--- NOTE | 2024-09-05 00:06 | PC.NURSE ---
report given to rachel. t taken to rm by RN on monitor.
[2024-09-05 00:07] LABS: Free T4 (Free Thyroxine) 1.37 ng/dL (0.89-1.76)
[2024-09-05 00:18] LABS: Alcohol, Blood Medical < 3.0 mg/dL (0-10.0); Cholesterol 180 mg/dL (132-200); HDL Cholesterol 36 mg/dL (40-60); LDL Cholesterol,Calculated 117 mg/dL (0-130); Thyroid Stimulating Hormone 2.97 uIU/mL (0.55-4.78); Triglycerides 137 mg/dL (30-150)
[2024-09-05 01:11] LABS: Collection Type, Urine Catheter; Squamous Epithelial Cell,Urine 0 /hpf (0-5); WBC,Urine 0 /hpf (0-5)
[2024-09-05 01:43] LABS: Bacteria,Urine Rare; Bilirubin,Urine Negative (Negative); Blood,Urine Trace (Negative); Clarity,Urine Clear (Clear/Hazy); Color,Urine Lt-Yellow (Lt Yel-Yel); Glucose, Urine 4+ (Negative); Ketones,Urine Negative (Negative); Leukocyte Esterase,Urine Negative (Negative); Nitrite,Urine Negative (Negative); PH,Urine 5.5 (5.0-7.0); Protein,Urine 2+ (Neg - Trace); RBC,Urine 1 /hpf (0-3); Urobilinogen,Urine Negative mg/dL (0.0-1.0)
[2024-09-05 01:44] LABS: Specific Gravity,Urine > 1.035 (1.001-1.035)
[2024-09-05 01:51] LABS: Amphetamine/Methamp Scrn,U Negative (Negative); Barbiturate Screen,Urine Negative (Negative); Benzodiazepines Screen,Urine Negative (Negative); Benzoylecgonine Screen, Ur Negative (Negative); Fentanyl Screen,Urine Negative (Negative); Opiate Screen,Urine Negative (Negative); THC Screen,Urine Negative (Negative)
[2024-09-05 04:12] LABS: Folate > 24.00 ng/mL (>5.38); Vitamin B12 553 pg/mL (211-911)
[2024-09-05] MEDS: INSULIN LISPRO (AdmeLOG) 1 UNIT/0.01 ML UNIT SC ×4 (05:10→21:20)
[2024-09-05] MEDS: HEPARIN SOD INJ 5000 UNIT/ML VIAL SC ×2 (05:10→21:21)
[2024-09-05] MEDS: LEVOTHYROXINE SODIUM 25 MCG TABLET 75 MCG PO (05:10)
[2024-09-05 05:27] LABS: Basophils % (Auto) 1 % (0-2.5); Eosinophils # (Auto) 0.2 Thou/mm3 (0.0-0.5); Eosinophils % (Auto) 4 % (0-10); Hemoglobin 10.1 g/dL (13.5-16.0); Immature Granulocytes % (Auto) 0 % (0-0); Immature Granulocytes Auto 0.01 Thou/mm3 (0.00-0.00); Lymphocytes # (Auto) 1.6 Thou/mm3 (1.0-4.8); Lymphocytes % (Auto) 29 % (10-50); Mean Corpuscular HGB Conc 34.8 g/dl (31.0-37.0); Mean Corpuscular Hemoglobin 30.3 pg (25.0-35.0); Mean Corpuscular Volume 87 fL (80-100); Monocytes # (Auto) 0.3 Thou/mm3 (0.0-0.8); Monocytes % (Auto) 6 % (0-12); Neutrophils # (Auto) 3.4 Thou/mm3 (1.8-7.7); Neutrophils % (Auto) 61 % (37-80); Nucleated Red Blood Cell % 0 /100 WBC (0); Platelet Count 188 Thou/mm3 (140-440); RDW Standard Deviation 39.7 fL (35.1-43.9); Red Blood Count 3.33 Miln/mm3 (4.50-5.90); White Blood Count 5.6 Thou/mm3 (3.8-10.6)
[2024-09-05 05:55] LABS: Alanine Aminotransferase 11 U/L (10-49); Albumin, Serum 3.6 gm/dL (3.4-4.8); Albumin/Globulin Ratio 1.6 (1.2-2.2); Alkaline Phosphatase 72 U/L (46-116); Anion Gap 8 (7-16); Aspartate Amino Transferase 11 U/L (0-34); BUN/Creatinine Ratio 20 Ratio (12-20); Bilirubin,Total 0.5 mg/dL (0.3-1.2); Blood Urea Nitrogen 30 mg/dL (9-23); Calcium (Corrected) 9.3 mg/dL (8.5-10.1); Carbon Dioxide 24.9 mMol/L (20.0-31.0); Chloride 105 mMol/L (98-107); Creatinine (Component) 1.5 mg/dL (0.6-1.3); Estimated Creatinine Clearance 33.7 mL/min (>60); Globulin 2.2 gm/dL (2.3-3.5); Glucose 155 mg/dL (74-106); Osmolality,Calculated 284 (275-295); Potassium 4.1 mMol/L (3.4-5.1); Sodium 138 mMol/L (136-145); Total Protein 5.8 gm/dL (5.7-8.2); eGFR 48 See Note
[2024-09-05 06:34] LABS: Glucose Estimated Average 263 mg/dL (80-131); Hemoglobin A1C 10.8 % Hgb (4.8-6.0)
[2024-09-05 08:14] LABS: Magnesium 2.1 mg/dL (1.6-2.6); Phosphorous 3.6 mg/dL (2.4-5.1)
[2024-09-05] MEDS: ASPIRIN EC 81 MG TABEC PO (08:18)
[2024-09-05] MEDS: TAMSULOSIN HCL 0.4 MG CAPSULE PO (08:18)
--- NOTE | 2024-09-05 10:24 | ECHO_ITS ---
Transthoracic Echo Report Ht (in): 63 Wt (lb): 130 Exam Location: Echo Lab Status: Inpatient Senior [employer] Gifts Officer: MARIANA Castillo^^^^ Indications: Procedure Performed: BP: / HR: 63 Technical Quality: Fair MEASUREMENTS (Male / Female) Normal Values 2D ECHO LV Diastolic Diameter PLAX 3.7 cm 4.2 - 5.9 / 3.9 - 5.3 cm LV Systolic Diameter PLAX 2.6 cm IVS Diastolic Thickness 1.0 cm 0.6 - 1.0 / 0.6 - 0.9 cm LVPW Diastolic Thickness 1.0 cm 0.6 - 1.0 / 0.6 - 0.9 cm LV Relative Wall Thickness 0.5 LVOT Diameter 1.3 cm Aortic Root Diameter 3.2 cm LA Systolic Diameter LX 4.9 cm 3.0 - 4.0 / 2.7 - 3.8 cm LA Volume Index 33.5 cm?/m? 16 - 28 cm?/m? Ascending Aorta Diameter 3.1 cm DOPPLER AV Peak Velocity 163.3 cm/s AV Peak Gradient 10.7 mmHg AV Mean Gradient 6.3 mmHg AV Velocity Time Integral 37.3 cm LVOT Peak Velocity 96.8 cm/s LVOT Peak Gradient 3.7 mmHg LVOT Velocity Time Integral 26.2 cm LVOT Cardiac Index 1348.0 cm?/min?m? AV Area Cont Eq vti 0.9 cm? AV Area Cont Eq pk 0.8 cm? MV Area PHT 2.0 cm? Mitral E Point Velocity 101.0 cm/s Mitral A Point Velocity 124.0 cm/s Mitral E to A Ratio 0.8 LV E' Lateral Velocity 5.1 cm/s Mitral E to LV E' Lateral Ratio 19.8 LV E' Septal Velocity 5.2 cm/s Mitral E to LV E' Septal Ratio 19.5 TR Peak Velocity 196.0 cm/s TR Peak Gradient 15.4 mmHg PV Peak Velocity 86.1 cm/s PV Peak Gradient 3.0 mmHg RVOT Peak Velocity 52.5 cm/s FINDINGS Left Ventricle Normal left ventricular size, wall thickness, systolic function with no obvious regional wall motion abnormalities. There is grade I diastolic dysfunction of the left ventricle (impaired relaxation pattern). The left ventricular ejection fraction is normal, estimated at 60-65%. Right Ventricle The right ventricle is normal in size and systolic function. The estimated right ventricular systolic pressure, 20 mmHg. Left Atrium The left atrium is normal by two-dimensional, color flow and Doppler imaging with no structural abnormalities, no thrombus formation present. Right Atrium The right atrium is normal by two-dimensional imaging, color flow and Doppler imaging with no structural abnormalities, no thrombus formation present. Atrial Septum The interatrial septum is normal to color flow Doppler and agitated saline imaging. Aorta The aorta is normal by two-dimensional, color flow and Doppler interrogation. Mitral Valve Mild mitral annular calcification. Mild mitral regurgitation. Aortic Valve Aortic valve sclerosis. Tricuspid Valve There is mild tricuspid valve regurgitation. Pulmonic Valve Trivial pulmonic valve regurgitation. Vessels The pulmonary artery appears normal. The inferior vena cava pulmonary and hepatic veins appear normal. Pericardium The pericardium is normal by two-dimensional imaging. There is no significant pericardial effusion. CONCLUSIONS Indication: Bubble study for possible stroke Bubble study negative for any PFO or ASD. Consider MAILE if high clinical risk of suspicion. Normal LV size and function with an estimated EF 55 to 60%. Stage I diastolic dysfunction. Normal RV size and function. RVSP at estimated at 30 mmHg. Moderate to severe aortic valve calcification noted. There is evidence of aortic stenosis but underestimated here and at least patient has mild to moderate aortic stenosis. Moderate to severe MAC posterior greater than anterior, mild MR and TR. Dilated left atrium Waldo Boss (Electronically Signed) Final Date: 08 September 2024 11:50
[2024-09-05 11:35] LABS: Magnesium 2.2 mg/dL (1.6-2.6); Phosphorous 3.5 mg/dL (2.4-5.1)
--- NOTE | 2024-09-05 13:38 | ESPR_ITS ---
<Statement entered by Viktoria Lilly MD - 09/05/24 15:16> Patient seen and examined. No acute overnight event. Labs and vitals were reviewed. Will order MRI as well as EEG. Continue current management, follow- up pending echo, will follow-up with Dr. Montoya's recommendations. I personally saw and examined the patient and discussed the assessment and plan with the entire medicine team, including my attending Dr. Pulido, Viktoria Lilly M.D. PGY-2 Disclaimer: Despite multiple revisions, due to the dictation software being used, the document bellow may not be free of grammatical errors including phonetic/typographic errors. However, this does not deter from our commitment to providing health care in the patient's best interest in mind. Documentation for date of: 09/05/24 Subjective Subjective Interval history: Patient admitted overnight. Past medical history of hypertension, diabetes mellitus type 2 insulin-dependent, hypothyroidism, Parkinson's disease (no medication on board) who was admitted for acute encephalopathy with stroke rule out. On admission NIHSS of 2. At bedside patient denied headache and stated upper and lower limb weakness had resolved. Patient stated he does not check his blood pressure at home and is not sure if he takes blood pressure medication. Patient stated he felt weak last night after checking his blood glucose which is over 400. Patient stated family gave him 12 units of Lantus. Patient denied any seizure-like activity or dizziness. Patient stated he is dependent on his daughter for his activities of daily living and struggles to take care of him at home. Reached out to family, spoke to , who stated she is unable to take care of of and mostly relies on daughter for help. Family is not sure if they would like patient to be placed in SNF. Exam Vital Signs Temp Pulse Resp BP Pulse Ox O2 Del Method 97.5 F 66 12 122/64 100 Room Air 09/05/24 08:00 09/05/24 12:00 09/05/24 08:00 09/05/24 08:00 09/05/24 08:00 09/05/24 08:00 Narrative Exam General Appearance: Alert & Oriented X2, male who is lying in bed in no acute distress. 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 HEENT: Skull symmetrical and atraumatic. Conjunctivae pin and moist. Pupils equal, round, reactive to light and accommodation (PERRL). External ear without lesion or discharge. Straight, nares patient, mucosa pink, no discharge. No thyroid nodule appreciated. No cervical lymphadenopathy. Cardio: Normal Rate and Rhythm with S1 and S2 heart sounds. No murmurs or extra heart sounds auscultated. No bruits on carotid auscultation. No peripheral edema or cyanosis. Lungs: Symmetric with good expansion. Chest and back non-tender. Breath sounds vesicular without crackles, wheezing or rhonchi Abdomen: Non-tender, Non-distended, Normal Reactive Bowel Sounds Neuro: Yes Alert, Yes cooperative, Yes oriented to person, Yes place, and No time. Speech clear. CN grossly intact. Upper motor strength 4/5 and Lower motor strength 5/5. Sensation intact. NIHSS 2 Objective Labs 09/05/24 04:40 09/05/24 04:40 Labs: Laboratory Results - last 24 hr 09/04/24 09/04/24 09/05/24 19:25 22:07 00:41 WBC 6.4 RBC 3.58 L Hgb 11.1 L Hct 30.9 L MCV 86 MCH 31.0 MCHC 35.9 RDW Std Deviation 38.7 Plt Count 217 Neut % (Auto) 60 Lymph % (Auto) 31 [place] % (Auto) 5 Eos % (Auto) 3 Baso % (Auto) 1 Neut # (Auto) 3.8 Lymph # (Auto) 2.0 [place] # (Auto) 0.3 Eos # (Auto) 0.2 Baso # (Auto) 0.0 Immature Gran # (Auto) 0.01 H Absolute Nucleated RBC 0.00 Immature Gran % 0 Nucleated RBC % 0 PT 11.2 INR 1.0 APTT 25.4 Sodium 134 L Potassium 4.3 Chloride 101 Carbon Dioxide 24.3 Anion Gap 9 BUN 27 H Creatinine 1.6 H Estim Creat Clear Calc Not Performed. eGFR 44 L BUN/Creatinine Ratio 17 [address]ucose [address] Glu mg/dL Hemoglobin A1c Calculated Osmolality 289 Calcium 9.3 Corrected Calcium 9.4 Phosphorus Magnesium 2.1 Total Bilirubin 0.5 AST 16 ALT 13 Alkaline Phosphatase 74 Troponin I < 0.020 B-Natriuretic Peptide 115 H Total Protein 6.4 Albumin 3.9 Globulin 2.5 Albumin/Globulin Ratio 1.6 Triglycerides 137 Cholesterol 180 LDL Cholesterol, Calc 117 HDL Cholesterol 36 L Cholesterol/HDL Ratio 5.0 Vitamin B12 553 Folate > 24.00 TSH 2.97 Free T4 1.37 Ur Collection Type Catheter Urine Color Lt-Yellow Urine Clarity Clear Urine pH 5.5 Ur Specific [place] > 1.035 H Urine Protein 2+ A Urine Glucose (UA) 4+ A Urine Ketones Negative Urine Blood Trace Urine Nitrite Negative Urine Bilirubin Negative Urine Urobilinogen (Auto) Negative Ur Leukocyte Esterase Negative Urine RBC 1 Urine WBC 0 Ur Squamous Epith Cells 0 Urine Bacteria Rare Urine Opiates Screen Negative Urine Fentanyl Screen Negative Ur Barbiturates Screen Negative U Amphetamin/Meth Scrn Negative U Benzodiazepines Scrn Negative U Cocaine Metab Screen Negative U Marijuana (THC) Screen Negative Ethyl Alcohol < 3.0 HCG (Qual) Negative 09/05/24 09/05/24 09/05/24 04:40 04:40 04:40 WBC 5.6 RBC 3.33 L Hgb 10.1 L Hct 29.0 L MCV 87 MCH 30.3 MCHC 34.8 RDW Std Deviation 39.7 Plt Count 188 Neut % (Auto) 61 Lymph % (Auto) 29 [place] % (Auto) 6 Eos % (Auto) 4 Baso % (Auto) 1 Neut # (Auto) 3.4 Lymph # (Auto) 1.6 [place] # (Auto) 0.3 Eos # (Auto) 0.2 Baso # (Auto) 0.0 Immature Gran # (Auto) 0.01 H Absolute Nucleated RBC 0.00 Immature Gran % 0 Nucleated RBC % 0 PT INR APTT Sodium 138 Potassium 4.1 Chloride 105 Carbon Dioxide 24.9 Anion Gap 8 BUN 30 H Creatinine 1.5 H Estim Creat Clear Calc 33.7 L eGFR 48 L BUN/Creatinine Ratio [address]ucose [address] Glu mg/dL 263 H Hemoglobin A1c 10.8 H Calculated Osmolality 284 Calcium 9.0 Corrected Calcium 9.3 Phosphorus 3.5 3.6 Magnesium 2.2 2.1 Total Bilirubin 0.5 AST 11 ALT 11 Alkaline Phosphatase 72 Troponin I B-Natriuretic Peptide Total Protein 5.8 Albumin 3.6 Globulin 2.2 L Albumin/Globulin Ratio 1.6 Triglycerides Cholesterol LDL Cholesterol, Calc HDL Cholesterol Cholesterol/HDL Ratio Vitamin B12 Folate TSH Free T4 Ur Collection Type Urine Color Urine Clarity Urine pH Ur Specific [place] Urine Protein Urine Glucose (UA) Urine Ketones Urine Blood Urine Nitrite Urine Bilirubin Urine Urobilinogen (Auto) Ur Leukocyte Esterase Urine RBC Urine WBC Ur Squamous Epith Cells Urine Bacteria Urine Opiates Screen Urine Fentanyl Screen Ur Barbiturates Screen U Amphetamin/Meth Scrn U Benzodiazepines Scrn U Cocaine Metab Screen U Marijuana (THC) Screen Ethyl Alcohol HCG (Qual) Quality Measures Quality Measures stroke Suspected type of Stroke: Unknown at this time Last known well (date): 09/04/24 Last known well (time): 18:00 Tenecteplase given: Reason(s) Tenecteplase not given: Uncontrolled BP not given Rehab services: PT evaluation ordered VTE Prophylaxis: pharmaceutical Antithrombotic by day 2:: ordered Statin ordered: >75 y/o moderate or high intensity dose Anticoagulation ordered for A- fib or flutter (current or hx): not indicated and none Advance care planning discussed with:: patient Assessment & Plan Assessment Current Active Medications: Generic Name Dose Route Start Last Admin Trade Name Freq PRN Reason Stop Dose Admin Acetaminophen 650 mg 09/04/24 21:57 Acetaminophen 325 Mg Tablet PO 10/04/24 21:56 Q6H PRN Fever >100.3 or pain 1-3 Aspirin 81 mg 09/05/24 09:00 09/05/24 08:18 Aspirin Ec 81 Mg Tabec PO 10/05/24 08:59 81 mg QDAY KAYLA Administration Atorvastatin Calcium 40 mg 09/05/24 21:00 Atorvastatin Calcium 20 Mg Tablet PO 10/05/24 20:59 HS KAYLA Dextrose 25 ml 09/04/24 22:13 Dextrose 50%-Water Inj 50 Ml Syringe IV 10/04/24 22:12 Q15MIN PRN BG 50-70 responsive npo pt Dextrose 50 ml 09/04/24 22:13 Dextrose 50%-Water Inj 50 Ml Syringe IV 10/04/24 22:12 Q15MIN PRN BG <50 OR BG <70 & pt unresponsive Heparin Sodium (Porcine) 5,000 unit 09/05/24 21:00 Heparin Sod Inj 5000 Unit/Ml Vial SC 09/19/24 20:59 Q12HR KAYLA Insulin Glargine 7 unit 09/04/24 22:15 09/04/24 22:45 Insulin Glargine (Lantus) 5 Unit/0.05 Ml (Per 5 Units) SC 10/04/24 22:14 Not Given HS [facility] Insulin Human Lispro 0 unit 09/05/24 11:30 09/05/24 12:21 Insulin Lispro (Admelog) 1 Unit/0.01 Ml Unit SC 10/05/24 11:29 1 unit ACHS KAYLA Administration Protocol Levothyroxine Sodium 75 mcg 09/05/24 06:00 09/05/24 05:10 Levothyroxine Sodium 25 Mcg Tablet PO 10/05/24 05:59 75 mcg ACBR KAYLA Administration Lorazepam 2 mg 09/05/24 10:00 Lorazepam 2 Mg/Ml Vial IVP 09/10/24 09:59 Q5MIN PRN Seizure Activity Ondansetron HCl 4 mg 09/04/24 21:57 Ondansetron Inj 2 Mg/Ml Inj 2 Ml IV 10/04/24 21:56 Q6H PRN NAUSEA OR VOMITING Protocol Sennosides 1 tab 09/04/24 21:57 Senna Tablet PO 10/04/24 21:56 QDAY PRN constipation Protocol Tamsulosin HCl 0.4 mg 09/05/24 09:00 09/05/24 08:18 Tamsulosin Hcl 0.4 Mg Capsule PO 10/05/24 08:59 0.4 mg QDAY KAYLA Administration Plan Patient is a 78 year old male with a past medical history of HTN, Diabetes Mellitus Type 2-insulin dependent, Hypothyroidism, and Parkinson's Disease who was admitted secondary to acute metabolic encephlopathy for stroke rule out. #CVA #Acute Encephlopathy #Upper Weakness Etiology: Given past medical history of diabetes with an A1c of 10.8, CVA can not be ruled out vs TIA. DDx: Less likely secondary to seizure given no symptoms noted during history vs metabolic encephlopathy given elevated glucose at home of 400. Diagnostics: Utox negative; Ethanol level negative Folate >24, Vitamin B12 [address] Negative for acute hemorrhage, mass effect or midline shift Head/Neck CTA: No cerebral large vessel Plan: -MRI brain w/o contrast -Echo w/ bubble study -EEG -Aspirin 81 mg Qday -Atorvastatin 40 mg HS -Neuro Checks -Aspiration Precautions, Head of bed 30 degrees -Euglycemia and avoid Hyperthermia -Acetaminophen PRN -Allow for permissive HTN, NO TPA given, Systolic <220 or Diastolic <110 or suspected end organ failure, utnil 6 AM 09/06/2024 -Physical Therapy & Speech (dysphagia diet type 1) -Labetalol PRN, give if SBP >220 or DBP >110 -Consult Neurology, appreciate Recommendation Dr. Montoya #[place] No baseline for patient. Cr level of 1.5, BUN 30, GFR 48, and CrCl 33. Pre-renal [place] likely given patient BUN/Cr >20 and elevated BUN. DDx: Consider CKD given long standing history of diabetes and elevated protein in urine vs obstructive given history of Tamsulosin use but less likely. Plan -encougage hydration -consider normal saline -avoid nephrotoxins -renally dose medication #Diabetes Mellitus Type 2 Insulin Dependent Patient has a long standing history of diabetes mellitus type 2 insulin dependent. Home medication of Glargine 14 units and metformin 1,000 mg PO BID. Diagnostics:Fasting Glucose on admission 386 w/ fasting glucose (09/05/2024) 155; A1c 10.8 (09/05/2024) Plan: -Consider holding Metfomrin on discharge given GFR of 48, consider CGM on discharge -Monitor Fasting Blood Glucose -Glargine 7 units HS -Sliding Scale #Allow for Permissive Hypertension #History Hypertension Patient has a past medical history of hypertension, currently no anti- hypertensive medication listed in home medication. Please allow for permissive hypertension. Plan -Allow for permissive HTN, NO TPA given, Systolic <220 or Diastolic <110 or suspected end organ failure until 6 AM 09/04/2024 -Labetalol PRN if need be, give if SBP >220 or DBP >110 #Parkinson's Disease Patient has a history of Parkinson's Disease, no medication on board. Plan No acute intervention, please follow up with neurology as outpatient. -Neurology consulted, appreciated recommendations. #Hypothyroidism Past medical history of hypothyroidism with Levothyroxine 75 mcg PO ACBR. Diagnostics: TSH 2.97 (September 2024). Plan: -Continue home medication, Levothyroxine 75 mcg PO ACBR #Normocytic Anemia Given MCV within normal range, anemia is likley secondary to chronic disease secondary to Diabetes Mellitus Vs low EPO if CKD present Vs iron deficieny Plan -continue to monitor Hgb -consider iron panel -consider EPO as outpatient. #BPH Continue home dose of Tamsulosin #Hypertensive Emergency, Resolved Health Maintenance: Disp: Pt is currently admitted to floors for further management of stroke rule out, awaiting MRI brain FEN: Dysphagia Diet 1-Pureed DVT: on subQ heparin Q12HR Code: Full Code - The patient's plan was discussed with attending Dr. Pulido and senior residents Dr. Maxx Bynum MD PGY1 Internal Medicine Attending Provider Attestation/Addendum I have discussed and was present for the essential components of the history, physical examination, diagnosis, and treatment plan with the resident. I agree with the patient's care as documented by the resident and amended herein by me. Robby Pulido, DO. Although this document has been carefully reviewed, there may still be some phonetic and other typographical errors. These errors are purely grammatical due to imperfections in the software program and should not be construed in any way to compromise the substance of the patient's medical care during this visit.
--- NOTE | 2024-09-05 14:23 | ESPR_ITS ---
Documentation for date of: 09/05/24 Subjective Subjective Interval history: Patient seen and examined at bedside. He is a 78-year-old male with a past medical history of hypertension, diabetes and hypothyroidism who was brought in to the ED on 09/04/2024 with altered mental status. Per daughter, patient had initially complained of feeling unwell and then had an episode of spontaneous urination, became altered after which EMS was called. When EMS arrived, patient had a GCS of 3 was hypertensive, hyperglycemic. In the ED, he was given Narcan without improvement, stroke alert was called. Head CT was negative. Patient was admitted for management of acute encephalopathy, likely metabolic. Bedside today, patient's still confused and altered, AAO x 1. Pending brain MRI, glycemic control better today is a little controlled. Exam Vital Signs Temp Pulse Resp BP Pulse Ox O2 Del Method 97.5 F 66 12 122/64 100 Room Air 09/05/24 08:00 09/05/24 12:00 09/05/24 08:00 09/05/24 08:00 09/05/24 08:00 09/05/24 08:00 Narrative Exam GENERAL: AAOX1, confused and moving around NEURO: Disoriented, CN 11-XII grossly intact although limited in assessment HEENT: Dry mucosa. Eyes open, symmetrical, & clear CARDIO: No chest pain on palpation. Heart RRR, no obvious murmurs PULM: No noted coughing/dyspnea. Lungs CTA B/L GI: Abdomen soft, nondistended. URO/MEDICAL UNIT SECRETARY:: No further abnormalities noted. SKIN/MSK/EXT: Left BKA, left foot amputated at ankle Objective Labs 09/06/24 04:52 09/06/24 04:52 Labs: Laboratory Results - last 24 hr 09/04/24 09/04/24 09/05/24 19:25 22:07 00:41 WBC 6.4 RBC 3.58 L Hgb 11.1 L Hct 30.9 L MCV 86 MCH 31.0 MCHC 35.9 RDW Std Deviation 38.7 Plt Count 217 Neut % (Auto) 60 Lymph % (Auto) 31 [place] % (Auto) 5 Eos % (Auto) 3 Baso % (Auto) 1 Neut # (Auto) 3.8 Lymph # (Auto) 2.0 [place] # (Auto) 0.3 Eos # (Auto) 0.2 Baso # (Auto) 0.0 Immature Gran # (Auto) 0.01 H Absolute Nucleated RBC 0.00 Immature Gran % 0 Nucleated RBC % 0 PT 11.2 INR 1.0 APTT 25.4 Sodium 134 L Potassium 4.3 Chloride 101 Carbon Dioxide 24.3 Anion Gap 9 BUN 27 H Creatinine 1.6 H Estim Creat Clear Calc Not Performed. eGFR 44 L BUN/Creatinine Ratio 17 [address]ucose [address] Glu mg/dL Hemoglobin A1c Calculated Osmolality 289 Calcium 9.3 Corrected Calcium 9.4 Phosphorus Magnesium 2.1 Total Bilirubin 0.5 AST 16 ALT 13 Alkaline Phosphatase 74 Troponin I < 0.020 B-Natriuretic Peptide 115 H Total Protein 6.4 Albumin 3.9 Globulin 2.5 Albumin/Globulin Ratio 1.6 Triglycerides 137 Cholesterol 180 LDL Cholesterol, Calc 117 HDL Cholesterol 36 L Cholesterol/HDL Ratio 5.0 Vitamin B12 553 Folate > 24.00 TSH 2.97 Free T4 1.37 Ur Collection Type Catheter Urine Color Lt-Yellow Urine Clarity Clear Urine pH 5.5 Ur Specific [place] > 1.035 H Urine Protein 2+ A Urine Glucose (UA) 4+ A Urine Ketones Negative Urine Blood Trace Urine Nitrite Negative Urine Bilirubin Negative Urine Urobilinogen (Auto) Negative Ur Leukocyte Esterase Negative Urine RBC 1 Urine WBC 0 Ur Squamous Epith Cells 0 Urine Bacteria Rare Urine Opiates Screen Negative Urine Fentanyl Screen Negative Ur Barbiturates Screen Negative U Amphetamin/Meth Scrn Negative U Benzodiazepines Scrn Negative U Cocaine Metab Screen Negative U Marijuana (THC) Screen Negative Ethyl Alcohol < 3.0 HCG (Qual) Negative 09/05/24 09/05/24 09/05/24 04:40 04:40 04:40 WBC 5.6 RBC 3.33 L Hgb 10.1 L Hct 29.0 L MCV 87 MCH 30.3 MCHC 34.8 RDW Std Deviation 39.7 Plt Count 188 Neut % (Auto) 61 Lymph % (Auto) 29 [place] % (Auto) 6 Eos % (Auto) 4 Baso % (Auto) 1 Neut # (Auto) 3.4 Lymph # (Auto) 1.6 [place] # (Auto) 0.3 Eos # (Auto) 0.2 Baso # (Auto) 0.0 Immature Gran # (Auto) 0.01 H Absolute Nucleated RBC 0.00 Immature Gran % 0 Nucleated RBC % 0 PT INR APTT Sodium 138 Potassium 4.1 Chloride 105 Carbon Dioxide 24.9 Anion Gap 8 BUN 30 H Creatinine 1.5 H Estim Creat Clear Calc 33.7 L eGFR 48 L BUN/Creatinine Ratio 20 [address]ucose [address] Glu mg/dL 263 H Hemoglobin A1c 10.8 H Calculated Osmolality 284 Calcium 9.0 Corrected Calcium 9.3 Phosphorus 3.5 3.6 Magnesium 2.2 2.1 Total Bilirubin 0.5 AST 11 ALT 11 Alkaline Phosphatase 72 Troponin I B-Natriuretic Peptide Total Protein 5.8 Albumin 3.6 Globulin 2.2 L Albumin/Globulin Ratio 1.6 Triglycerides Cholesterol LDL Cholesterol, Calc HDL Cholesterol Cholesterol/HDL Ratio Vitamin B12 Folate TSH Free T4 Ur Collection Type Urine Color Urine Clarity Urine pH Ur Specific [place] Urine Protein Urine Glucose (UA) Urine Ketones Urine Blood Urine Nitrite Urine Bilirubin Urine Urobilinogen (Auto) Ur Leukocyte Esterase Urine RBC Urine WBC Ur Squamous Epith Cells Urine Bacteria Urine Opiates Screen Urine Fentanyl Screen Ur Barbiturates Screen U Amphetamin/Meth Scrn U Benzodiazepines Scrn U Cocaine Metab Screen U Marijuana (THC) Screen Ethyl Alcohol HCG (Qual) Quality Measures Quality Measures stroke Suspected type of Stroke: Unknown at this time Last known well (date): 09/04/24 Last known well (time): 18:00 Tenecteplase given: Reason(s) Tenecteplase not given: Uncontrolled BP not given Rehab services: PT evaluation ordered and Speech Language Pathology eval ordered VTE Prophylaxis: mechanical Antithrombotic by day 2:: ordered Statin ordered: >75 y/o moderate or high intensity dose Anticoagulation ordered for A-fib or flutter (current or hx): not indicated and none Advance care planning discussed with:: patient Assessment & Plan Assessment Current Active Medications: Generic Name Dose Route Start Last Admin Trade Name Freq PRN Reason Stop Dose Admin Acetaminophen 650 mg 09/04/24 21:57 Acetaminophen 325 Mg Tablet PO 10/04/24 21:56 Q6H PRN Fever >100.3 or pain 1-3 Aspirin 81 mg 09/05/24 09:00 09/05/24 08:18 Aspirin Ec 81 Mg Tabec PO 10/05/24 08:59 81 mg QDAY KAYLA Administration Atorvastatin Calcium 40 mg 09/05/24 21:00 Atorvastatin Calcium 20 Mg Tablet PO 10/05/24 20:59 HS KAYLA Dextrose 25 ml 09/04/24 22:13 Dextrose 50%-Water Inj 50 Ml Syringe IV 10/04/24 22:12 Q15MIN PRN BG 50-70 responsive npo pt Dextrose 50 ml 09/04/24 22:13 Dextrose 50%-Water Inj 50 Ml Syringe IV 10/04/24 22:12 Q15MIN PRN BG <50 OR BG <70 & pt unresponsive Heparin Sodium (Porcine) 5,000 unit 09/05/24 21:00 Heparin Sod Inj 5000 Unit/Ml Vial SC 09/19/24 20:59 Q12HR KAYLA Insulin Glargine 7 unit 09/04/24 22:15 09/04/24 22:45 Insulin Glargine (Lantus) 5 Unit/0.05 Ml (Per 5 Units) SC 10/04/24 22:14 Not Given HS KAYLA Insulin Human Lispro 0 unit 09/05/24 11:30 09/05/24 12:21 Insulin Lispro (Admelog) 1 Unit/0.01 Ml Unit SC 10/05/24 11:29 1 unit ACHS KAYLA Administration Protocol Levothyroxine Sodium 75 mcg 09/05/24 06:00 09/05/24 05:10 Levothyroxine Sodium 25 Mcg Tablet PO 10/05/24 05:59 75 mcg ACBR KAYLA Administration Lorazepam 2 mg 09/05/24 10:00 Lorazepam 2 Mg/Ml Vial IVP 09/10/24 09:59 Q5MIN PRN Seizure Activity Ondansetron HCl 4 mg 09/04/24 21:57 Ondansetron Inj 2 Mg/Ml Inj 2 Ml IV 10/04/24 21:56 Q6H PRN NAUSEA OR VOMITING Protocol Sennosides 1 tab 09/04/24 21:57 Senna Tablet PO 10/04/24 21:56 QDAY PRN constipation Protocol Tamsulosin HCl 0.4 mg 09/05/24 09:00 09/05/24 08:18 Tamsulosin Hcl 0.4 Mg Capsule PO 10/05/24 08:59 0.4 mg QDAY KAYLA Administration Plan Summary: The patient is a 78-year-old male with a past medical history of hypertension, diabetes and hypothyroidism who was brought in to the ED on 09/04/2024 with altered mental status. Admitted for evaluation of acute encephalopathy. #Acute encephalopathy #Likely metabolic #CVA rule out, unlikely The patient was brought into the ED on 09/04/2024 with altered mental status. He had initially complained of feeling unwell and was altered when EMS was called. On arrival, patient's reportedly had a GCS of 3, was hypertensive and hyperglycemic. Received Narcan in the ED, no improvement. Stroke alert was called and the patient had head CT and CT which were negative. Admitted for acute encephalopathy workup with stroke rule out. Started on aspirin and atorvastatin Plan: -MRI and Echo with bubble pending -Continue aspirin and atorvastatin -Optimize blood glucose and blood pressure control #Hypertensive emergency #History of type II DM #History of hypothyroidism #History of tremors -Management per primary team Case was discussed with attending physician, Dr Lindsay De Los Santos MD PGY-1 Disclaimer: This note was dictated by speech recognition. Minor errors in natural gas shothole driller may be present due to voice recognition software. Attending Provider Attestation/Addendum I personally have seen and examined the patient at the bedside and I agree with resident's findings, assessment and plan of care. Continue with the current management. Will add Sinemet 25/100 : 3 times a day to help with the tremors
--- NOTE | 2024-09-05 15:24 | PC.SS ---
PLUMBER SUPERVISOR conducted phone contact with patient?s spouse, Meka Gonzalez ; to conduct initial assessment and to discuss discharge planning.? Patient resides at home with spouse.? Patient possesses history of right foot amputation.? Patient does possess a prosthetic.? Patient utilizes a walker to assist with ambulation.? Patient does not utilize home oxygen.? Patient requires assistance with completion of ADL?s.? Patient is aligned with [facility].? Patient?s surrogate medical decision maker is spouse, Meka Gonzalez.? Patient?s PCP is Dr. Huey Fair.? Patient does not participate with dialysis.? Patient does not possess any specialty providers.? Patient utilizes [employer] [facility].? Plan is for the patient to return home at the time of discharge.? Patient?s spouse will provide transportation on behalf of the patient. ?No discharge needs identified by the patient.? No further intervention required at this time, community mental health social worker will be available to address any further concerns.? Next of Kin: Meka Baerarro D/C Plan: Home
--- NOTE | 2024-09-05 15:38 | PC.SS ---
Rounding Note: Plan is to rule out stroke. PT evaluation pending.
--- NOTE | 2024-09-05 17:04 | PC.SS ---
MILK PICKUP DRIVER informed by pharmacist that patient disclosed suicidal ideation to pharmacy retail support specialist during bedside contact. MILK PICKUP DRIVER conducted bedside contact with the patient to discuss incident. At bedside with patient was spouse, Meka Gonzalez. MILK PICKUP DRIVER utilized translation line to provide interpretation. Patient's spouse confirmed presence at patient's bedside when patient disclosed to the pharmacy retail support specialist suicidal ideation. Patient's spouse informed MILK PICKUP DRIVER that patient does not possess history of self harm behaviors. Patient's daughter placed call to patient's spouse during MILK PICKUP DRIVER bedside contact. Patient's daughter informed MILK PICKUP DRIVER that the patient has been making statements for the past year of being tired and wanting a doctor to provide medication to allow him to pass away. MILK PICKUP DRIVER utilized translation line to confirm if patient currently possesses suicidal ideation. Patient was not participating with questions. Patient speaking in low soft tone, community services coordinator unable to decipher what patient was saying. MILK PICKUP DRIVER ceased attempt and provided update to ASW. ASW to meet with patient at bedside.
--- NOTE | 2024-09-05 17:21 | PC.SS ---
SS follow up: met with patient as there was concerns with SI statements being made by the patient earlier to a pharmacy buyer, however no documentation found in patient chart. ASW met with the patient who is Syriac speaking regarding comment made. Patient denies comment and states if he said something it was a joke and did not truly mean it. Patient was assessed for SI, HI and audio and visual hallucinations. Patient denies all. Patient states he has history with anxiety and depression. Patient takes Lorazepam medication. patient report no intent to harm self, patient reports being hopeful with life even with his age. Patient reports having good support from his , Meka who lives in the home. Patients PCP is Dr. Huey Fair. Patient denies any concerns with his mental health at the moment. Updated bed side nurse MATT Figueroa and Dr. Ivan of encounter with patient, no concerns at this time.
--- NOTE | 2024-09-05 17:50 | PC.NURSE ---
home meds sent home with .
--- NOTE | 2024-09-05 19:02 | PC.LAC ---
moved pt. to [id number] with all personal belongings.
[2024-09-05] MEDS: ATORVASTATIN CALCIUM 20 MG TABLET 40 MG PO (21:16)
[2024-09-05] MEDS: INSULIN GLARGINE (Lantus) 5 UNIT/0.05 ML (PER 5 UNITS) 7 UNIT SC (21:19)
--- NOTE | 2024-09-05 21:35 | PC.NURSE ---
to mri via [facility] accompanied by sales person.
[2024-09-05] MEDS: ACETAMINOPHEN 325 MG TABLET 650 MG PO (23:31)
[2024-09-06] VITALS (10 sets, daily range): BP systolic 109–183; BP diastolic 57–88; PULSE 63–103; RESP 16–19; TEMP 36.1–36.7; O2SAT 94–99; BMI 22.8; BMI 13.0
[2024-09-06 01:05] LABS: Creatinine MALB Rnd Ur 35 mg/dL (30-125); Microalbumin Creat Ratio 989 mg/gCrea (<30); Microalbumin, Random Urine 346 mg/L (0-300)
[2024-09-06] MEDS: hydrALAZINE INJ 20 MG/ML VIAL 10 MG IV ×2 (01:16→20:46)
[2024-09-06 05:43] LABS: Basophils % (Auto) 1 % (0-2.5); Eosinophils # (Auto) 0.2 Thou/mm3 (0.0-0.5); Eosinophils % (Auto) 4 % (0-10); Hematocrit 29.1 % (41.0-53.0); Hemoglobin 10.1 g/dL (13.5-16.0); Immature Granulocytes % (Auto) 0 % (0-0); Immature Granulocytes Auto 0.01 Thou/mm3 (0.00-0.00); Lymphocytes # (Auto) 1.5 Thou/mm3 (1.0-4.8); Lymphocytes % (Auto) 27 % (10-50); Mean Corpuscular HGB Conc 34.7 g/dl (31.0-37.0); Mean Corpuscular Hemoglobin 30.8 pg (25.0-35.0); Mean Corpuscular Volume 89 fL (80-100); Monocytes # (Auto) 0.3 Thou/mm3 (0.0-0.8); Monocytes % (Auto) 6 % (0-12); Neutrophils # (Auto) 3.3 Thou/mm3 (1.8-7.7); Neutrophils % (Auto) 62 % (37-80); Nucleated Red Blood Cell % 0 /100 WBC (0); Platelet Count 194 Thou/mm3 (140-440); RDW Standard Deviation 40.3 fL (35.1-43.9); Red Blood Count 3.28 Miln/mm3 (4.50-5.90); White Blood Count 5.3 Thou/mm3 (3.8-10.6)
[2024-09-06] MEDS: LEVOTHYROXINE SODIUM 25 MCG TABLET 75 MCG PO (05:47)
[2024-09-06 06:31] LABS: Alanine Aminotransferase 10 U/L (10-49); Albumin, Serum 3.5 gm/dL (3.4-4.8); Albumin/Globulin Ratio 1.5 (1.2-2.2); Alkaline Phosphatase 71 U/L (46-116); Anion Gap 9 (7-16); Aspartate Amino Transferase 13 U/L (0-34); BUN/Creatinine Ratio 19 Ratio (12-20); Bilirubin,Total 0.5 mg/dL (0.3-1.2); Blood Urea Nitrogen 27 mg/dL (9-23); Calcium 8.8 mg/dL (8.3-10.6); Calcium (Corrected) 9.2 mg/dL (8.5-10.1); Chloride 99 mMol/L (98-107); Creatinine (Component) 1.4 mg/dL (0.6-1.3); Estimated Creatinine Clearance 34.7 mL/min (>60); Globulin 2.3 gm/dL (2.3-3.5); Glucose 279 mg/dL (74-106); Osmolality,Calculated 283 (275-295); Sodium 134 mMol/L (136-145); Total Protein 5.8 gm/dL (5.7-8.2); eGFR 52 See Note
[2024-09-06] MEDS: INSULIN LISPRO (AdmeLOG) 1 UNIT/0.01 ML UNIT SC ×4 (07:22→20:50)
[2024-09-06] MEDS: HEPARIN SOD INJ 5000 UNIT/ML VIAL SC ×2 (08:19→20:50)
[2024-09-06] MEDS: TAMSULOSIN HCL 0.4 MG CAPSULE PO (08:19)
[2024-09-06] MEDS: ASPIRIN EC 81 MG TABEC PO (08:19)
[2024-09-06] MEDS: INSULIN LISPRO (AdmeLOG) 1 UNIT/0.01 ML UNIT 3 UNIT SC ×2 (11:24→16:55)
--- NOTE | 2024-09-06 14:06 | ESPR_ITS ---
<Statement entered by Viktoria Lilly MD - 09/06/24 14:29> Patient seen and examined. No acute overnight events. Labs reviewed, slight improvement of creatinine down from 1.5-1.4, glucose is elevated 279, increase Lantus to 10 at bedtime as well as added lispro 3 3 times daily. MRI was not significant. Pending EEG and echo. Will follow-up with the results, on discharge patient will be sent to home with home health. I personally saw and examined the patient and discussed the assessment and plan with the entire medicine team, including my attending Dr. Pulido, Viktoria Lilly M.D. PGY-2 Disclaimer: Despite multiple revisions, due to the dictation software being used, the document bellow may not be free of grammatical errors including phonetic/typographic errors. However, this does not deter from our commitment to providing health care in the patient's best interest in mind. Documentation for date of: 09/06/24 Subjective Subjective Interval history: Overnight, patient required hydralzine 10 mg IVX 1 for blood pressure of 183/73. Patient is not sure if he has anti-hypertensive medication on board. Patient denied any chest pain, SOB, denied blurry vision, or double vision. Overall feels better as compared to admission. Pending Echo and home health. Exam Vital Signs Temp Pulse Resp BP Pulse Ox O2 Del Method 97.1 F 72 17 116/61 96 Room Air 09/06/24 12:00 09/06/24 14:09/06/24 12:00 09/06/24 14:09/06/24 12:00 09/06/24 12:00 Narrative Exam General Appearance: Alert & Oriented X2, male who is lying in bed in no acute distress. 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 HEENT: Skull symmetrical and atraumatic. Conjunctivae pin and moist. Pupils equal, round, reactive to light and accommodation (PERRL). External ear without lesion or discharge. Straight, nares patient, mucosa pink, no discharge. No thyroid nodule appreciated. No cervical lymphadenopathy. Cardio: Normal Rate and Rhythm with S1 and S2 heart sounds. No murmurs or extra heart sounds auscultated. No bruits on carotid auscultation. No peripheral edema or cyanosis. Lungs: Symmetric with good expansion. Chest and back non-tender. Breath sounds vesicular without crackles, wheezing or rhonchi Abdomen: Non-tender, Non-distended, Normal Reactive Bowel Sounds Neuro: Yes Alert, Yes cooperative, Yes oriented to person, Yes place, and No time. Speech clear. CN grossly intact. Upper motor strength 4/5 and Lower motor strength 4/5. Sensation intact. Objective Labs 09/06/24 04:52 09/06/24 04:52 Labs: Laboratory Results - last 24 hr 09/05/24 09/06/24 23:40 04:52 WBC 5.3 RBC 3.28 L Hgb 10.1 L Hct 29.1 L MCV 89 MCH 30.8 MCHC 34.7 RDW Std Deviation 40.3 Plt Count 194 Neut % (Auto) 62 Lymph % (Auto) 27 [place] % (Auto) 6 Eos % (Auto) 4 Baso % (Auto) 1 Neut # (Auto) 3.3 Lymph # (Auto) 1.5 [place] # (Auto) 0.3 Eos # (Auto) 0.2 Baso # (Auto) 0.0 Immature Gran # (Auto) 0.01 H Absolute Nucleated RBC 0.00 Immature Gran % 0 Nucleated RBC % 0 Sodium 134 L Potassium 4.0 Chloride 99 Carbon Dioxide 26.0 Anion Gap 9 BUN 27 H Creatinine 1.4 H Estim Creat Clear Calc 34.7 L eGFR 52 L BUN/Creatinine Ratio 19 Glucose 279 H D Calculated Osmolality 283 Calcium 8.8 Corrected Calcium 9.2 Phosphorus 3.0 Magnesium 2.0 Total Bilirubin 0.5 AST 13 ALT 10 Alkaline Phosphatase 71 Total Protein 5.8 Albumin 3.5 Globulin 2.3 Albumin/Globulin Ratio 1.5 Ur Random Microalbumin 346 H U Creat (Microalbumin) 35 Microalb/Creat Ratio 989 H Quality Measures Quality Measures stroke Suspected type of Stroke: Unknown at this time Last known well (date): 09/04/24 Last known well (time): 18:00 Tenecteplase given: Reason(s) Tenecteplase not given: Uncontrolled BP not given Rehab services: PT evaluation ordered and Speech Language Pathology eval ordered VTE Prophylaxis: pharmaceutical Antithrombotic by day 2:: ordered Statin ordered: >75 y/o moderate or high intensity dose Anticoagulation ordered for A-fib or flutter (current or hx): not indicated and none Advance care planning discussed with:: patient Assessment & Plan Assessment Current Active Medications: Generic Name Dose Route Start Last Admin Trade Name Freq PRN Reason Stop Dose Admin Acetaminophen 650 mg 09/04/24 21:57 09/05/24 23:31 Acetaminophen 325 Mg Tablet PO 10/04/24 21:56 650 mg Q6H PRN Administration Fever >100.3 or pain 1-3 Aspirin 81 mg 09/05/24 09:00 09/06/24 08:19 Aspirin Ec 81 Mg Tabec PO 10/05/24 08:59 81 mg QDAY KAYLA Administration Atorvastatin Calcium 40 mg 09/05/24 21:00 09/05/24 21:16 Atorvastatin Calcium 20 Mg Tablet PO 10/05/24 20:59 40 mg HS KAYLA Administration Dextrose 25 ml 09/04/24 22:13 Dextrose 50%-Water Inj 50 Ml Syringe IV 10/04/24 22:12 Q15MIN PRN BG 50-70 responsive npo pt Dextrose 50 ml 09/04/24 22:13 Dextrose 50%-Water Inj 50 Ml Syringe IV 10/04/24 22:12 Q15MIN PRN BG <50 OR BG <70 & pt unresponsive Heparin Sodium (Porcine) 5,000 unit 09/05/24 21:00 09/06/24 08:19 Heparin Sod Inj 5000 Unit/Ml Vial SC 09/19/24 20:59 5,000 unit Q12HR KAYLA Administration Insulin Glargine 10 unit 09/06/24 21:00 Insulin Glargine (Lantus) 5 Unit/0.05 Ml (Per 5 Units) SC 10/06/24 20:59 HS KAYLA Insulin Human Lispro 0 unit 09/05/24 11:30 09/06/24 11:25 Insulin Lispro (Admelog) 1 Unit/0.01 Ml Unit SC 10/05/24 11:29 4 unit ACHS KAYLA Administration Protocol Insulin Human Lispro 3 unit 09/06/24 12:00 09/06/24 11:24 Insulin Lispro (Admelog) 1 Unit/0.01 Ml Unit SC 10/06/24 11:59 3 unit TIDWM KAYLA Administration Levothyroxine Sodium 75 mcg 09/05/24 06:00 09/06/24 05:47 Levothyroxine Sodium 25 Mcg Tablet PO 10/05/24 05:59 75 mcg ACBR KAYLA Administration Lisinopril 5 mg 09/07/24 09:00 Lisinopril 2.5 Mg Tablet PO 10/07/24 08:59 QDAY KAYLA Lorazepam 2 mg 09/05/24 10:00 Lorazepam 2 Mg/Ml Vial IVP 09/10/24 09:59 Q5MIN PRN Seizure Activity Ondansetron HCl 4 mg 09/04/24 21:57 Ondansetron Inj 2 Mg/Ml Inj 2 Ml IV 10/04/24 21:56 Q6H PRN NAUSEA OR VOMITING Protocol Sennosides 1 tab 09/04/24 21:57 Senna Tablet PO 10/04/24 21:56 QDAY PRN constipation Protocol Tamsulosin HCl 0.4 mg 09/05/24 09:00 09/06/24 08:19 Tamsulosin Hcl 0.4 Mg Capsule PO 10/05/24 08:59 0.4 mg QDAY KAYLA Administration Plan Patient is a 78 year old male with a past medical history of HTN, Diabetes Mellitus Type 2-insulin dependent, Hypothyroidism, and Parkinson's Disease who was admitted secondary to acute metabolic encephlopathy for stroke rule out. #Acute Encephlopathy, likely Metabolic, Resolved. #CVA, ruled out. #Upper Weakness Etiology: Given past medical history of diabetes mellitus that is non well controlled, acute encephalopathy likely secondary metabolic causes from hyperglycemia out, but TIA can not be rule out at this time given return to baseline and normal imaging findings. DDx: Seizure to be ruled after EEG. Diagnostics: Utox negative; Ethanol level negative Folate >24, Vitamin B12 553 -MRI brain w/o contrast: Negative for acute hemorrhage mass effect or midline shift. No acute infarct Head CT Negative for acute hemorrhage, mass effect or midline shift Head/Neck CTA: No cerebral large vessel Plan: -Echo w/ bubble study Pending -EEG -Pending -Aspirin 81 mg Qday -Atorvastatin 40 mg HS -Neuro checks -Aspiration Precautions, Head of bed 30 degrees -Acetaminophen PRN -Physical Therapy--Home health & Speech (dysphagia diet type 1) -Consult Neurology, appreciate Recommendation Dr. Montoya #[place], improving No baseline for patient. Cr level of 1.5, BUN 30, GFR 48, and CrCl 33. Pre-renal [place] likely given patient BUN/Cr >20 and elevated BUN. DDx: Consider CKD given long standing history of diabetes and elevated protein in urine vs obstructive given history of Tamsulosin use but less likely. Plan -encougage hydration -consider normal saline -avoid nephrotoxins -renally dose medication #Diabetes Mellitus Type 2 Insulin Dependent #Hyperglycemia, resolved. Patient has a long standing history of diabetes mellitus type 2 insulin dependent. Home medication of Glargine 14 units and metformin 1,000 mg PO BID. Diagnostics:Fasting Glucose on admission 386 w/ fasting glucose (09/05/2024) 155; A1c 10.8 (09/05/2024) Plan: -Consider holding Metfomrin on discharge given GFR of 48, consider CGM on discharge -Monitor Fasting Blood Glucose -Glargine 10 units HS -Lispro 3 units TID -Sliding Scale #History Hypertension Patient has a past medical history of hypertension, currently no anti- hypertensive medication listed in home medication. Please allow for permissive hypertension. Plan -Hydralazine 10 mg IVP Q4HR if blood pressure >160/110, please make sure heart rate is <90 #Parkinson's Disease Patient has a history of Parkinson's Disease, no medication on board. Plan No acute intervention, please follow up with neurology as outpatient. -Neurology consulted, appreciated recommendations. #Hypothyroidism Past medical history of hypothyroidism with Levothyroxine 75 mcg PO ACBR. Diagnostics: TSH 2.97 (September 2024). Plan: -Continue home medication, Levothyroxine 75 mcg PO ACBR #Normocytic Anemia Given MCV within normal range, anemia is likley secondary to chronic disease secondary to Diabetes Mellitus Vs low EPO if CKD present Vs iron deficieny Plan -continue to monitor Hgb -consider iron panel -consider EPO as outpatient. #BPH Continue home dose of Tamsulosin #Hypertensive Emergency, Resolved #Allow for Permissive Hypertension, Resolved. Health Maintenance: Disp: Pt is currently admitted to floors for further management of stroke rule out-->Echo and EEG FEN: Dysphagia Diet 1-Pureed DVT: on subQ heparin Q12HR Code: Full Code - The patient's plan was discussed with attending Dr. Pulido and senior residents Dr. Maxx Bynum MD PGY1 Internal Medicine Attending Provider Attestation/Addendum I have discussed and was present for the essential components of the history, physical examination, diagnosis, and treatment plan with the resident. I agree with the patient's care as documented by the resident and amended herein by me. Robby Pulido DO. Although this document has been carefully reviewed, there may still be some phonetic and other typographical errors. These errors are purely grammatical due to imperfections in the software program and should not be construed in any way to compromise the substance of the patient's medical care during this visit.
--- NOTE | 2024-09-06 15:02 | PC.SS ---
Rounding Note:EGD and Echo are pending.
[2024-09-06] MEDS: ACETAMINOPHEN 325 MG TABLET 650 MG PO (20:46)
[2024-09-06] MEDS: ATORVASTATIN CALCIUM 20 MG TABLET 40 MG PO (20:50)
[2024-09-06] MEDS: INSULIN GLARGINE (Lantus) 5 UNIT/0.05 ML (PER 5 UNITS) 10 UNIT SC (20:50)
[2024-09-06] MEDS: hydrOXYzine HCL 10 MG TABLET PO (20:58)
--- NOTE | 2024-09-06 23:22 | PD.NEUROPROG ---
Documentation for date of: 09/06/24 Subjective Subjective Interval history: Patient was seen and telemetry today at the bedside. He is close to baseline, continues to have resting tremors in both upper extremities. Exam - Neurology Vital Signs Temp Pulse Resp BP Pulse Ox O2 Del Method 97.0 F 70 18 178/88 H 94 L Room Air 09/06/24 20:00 09/06/24 20:46 09/06/24 20:00 09/06/24 20:46 09/06/24 20:00 09/06/24 20:00 Narrative Exam GENERAL APPEARANCE: Well hydrated, well-nourished in no acute distress. HEENT: Normocephalic, atraumatic, extraocular movements intact. Pupils: Equal reacting to light NECK: Supple, no JVD or bruits. CARDIOVASULAR: Heart: S1, S2 heard, regular without S3-S4 or murmur no rubs or gallops. LUNGS/CHEST: Clear to auscultation bilaterally. No rails, rhonchi, or wheezing. Normal inspection. ABDOMEN: Soft, nontender, with normal bowel sounds. No pulsatile masses. No rebound, rigidity, or guarding. Normal inspection and palpation. EXTREMITIES: Normal inspection and palpation. No edema, clubbing or cyanosis. SKIN: Warm and dry without rashes. Normal inspection. MUSCULOSKELETAL: No cervical, thoracic, lumbar or midline bony tenderness. Normal inspection. NEURO: Alert, awake and oriented x2. Cranial nerves: II through XII grossly intact. Speech and language: Normal with no dysarthria or dysphasia. Motor system: Tone and bulk: Normal: Strength: Moves all 4 extremities; No pronator drift noted. Deep tendon reflexes: 1+ bilaterally symmetrical. Plantar reflex: Downgoing bilaterally. Sensory system: Intact to pinprick sensation bilaterally. Coordination: Intact to [id number]-[id number] and equq-atzp-jysc test bilaterally. No ataxia, no dysmetria, or dysdiadochokinesia noted. He does have resting tremors in both upper extremities gait: Not tested. No signs of meningeal irritation noted. PSYCHIATRIC: Normal mood and affect. Objective Labs 09/08/24 04:20 09/08/24 04:20 Labs: Laboratory Results - last 24 hr 09/05/24 09/06/24 23:40 04:52 WBC 5.3 RBC 3.28 L Hgb 10.1 L Hct 29.1 L MCV 89 MCH 30.8 MCHC 34.7 RDW Std Deviation 40.3 Plt Count 194 Neut % (Auto) 62 Lymph % (Auto) 27 [place] % (Auto) 6 Eos % (Auto) 4 Baso % (Auto) 1 Neut # (Auto) 3.3 Lymph # (Auto) 1.5 [place] # (Auto) 0.3 Eos # (Auto) 0.2 Baso # (Auto) 0.0 Immature Gran # (Auto) 0.01 H Absolute Nucleated RBC 0.00 Immature Gran % 0 Nucleated RBC % 0 Sodium 134 L Potassium 4.0 Chloride 99 Carbon Dioxide 26.0 Anion Gap 9 BUN 27 H Creatinine 1.4 H Estim Creat Clear Calc 34.7 L eGFR 52 L BUN/Creatinine Ratio 19 Glucose 279 H D Calculated Osmolality 283 Calcium 8.8 Corrected Calcium 9.2 Phosphorus 3.0 Magnesium 2.0 Total Bilirubin 0.5 AST 13 ALT 10 Alkaline Phosphatase 71 Total Protein 5.8 Albumin 3.5 Globulin 2.3 Albumin/Globulin Ratio 1.5 Ur Random Microalbumin 346 H U Creat (Microalbumin) 35 Microalb/Creat Ratio 989 H Assessment & Plan Additional Assessment & Plan Additional Plan: The patient is a 78-year-old male with a past medical history of hypertension, diabetes and hypothyroidism who was brought in to the ED on 09/04/2024 with altered mental status. Admitted for evaluation of acute encephalopathy. #Acute encephalopathy #Likely metabolic #CVA rule out, unlikely The patient was brought into the ED on 09/04/2024 with altered mental status. He had initially complained of feeling unwell and was altered when EMS was called. On arrival, patient's reportedly had a GCS of 3, was hypertensive and hyperglycemic. Received Narcan in the ED, no improvement. Stroke alert was called and the patient had head CT and CT which were negative. Admitted for acute encephalopathy workup with stroke rule out. Started on aspirin and atorvastatin Plan: -MRI and Echo with bubble study : Negative -Continue aspirin and atorvastatin -Optimize blood glucose and blood pressure control #Hypertensive emergency #History of type II DM #History of hypothyroidism #History of tremors -Management per primary team
[2024-09-07] VITALS (10 sets, daily range): BP systolic 132–161; BP diastolic 73–88; PULSE 62–71; RESP 13–17; TEMP 36.2–36.8; O2SAT 95–100; BMI 22.8
[2024-09-07] MEDS: LEVOTHYROXINE SODIUM 25 MCG TABLET 75 MCG PO (06:24)
[2024-09-07 06:29] LABS: Basophils % (Auto) 0 % (0-2.5); Eosinophils # (Auto) 0.2 Thou/mm3 (0.0-0.5); Eosinophils % (Auto) 5 % (0-10); Hematocrit 28.9 % (41.0-53.0); Hemoglobin 10.3 g/dL (13.5-16.0); Immature Granulocytes % (Auto) 0 % (0-0); Immature Granulocytes Auto 0.01 Thou/mm3 (0.00-0.00); Lymphocytes # (Auto) 1.6 Thou/mm3 (1.0-4.8); Lymphocytes % (Auto) 31 % (10-50); Mean Corpuscular HGB Conc 35.6 g/dl (31.0-37.0); Mean Corpuscular Hemoglobin 31.7 pg (25.0-35.0); Mean Corpuscular Volume 89 fL (80-100); Monocytes # (Auto) 0.3 Thou/mm3 (0.0-0.8); Monocytes % (Auto) 6 % (0-12); Neutrophils % (Auto) 58 % (37-80); Nucleated Red Blood Cell % 0 /100 WBC (0); Platelet Count 173 Thou/mm3 (140-440); RDW Standard Deviation 40.3 fL (35.1-43.9); Red Blood Count 3.25 Miln/mm3 (4.50-5.90); White Blood Count 5.2 Thou/mm3 (3.8-10.6)
[2024-09-07 07:04] LABS: Alanine Aminotransferase 9 U/L (10-49); Albumin, Serum 3.6 gm/dL (3.4-4.8); Albumin/Globulin Ratio 1.6 (1.2-2.2); Alkaline Phosphatase 70 U/L (46-116); Anion Gap 9 (7-16); Aspartate Amino Transferase 12 U/L (0-34); BUN/Creatinine Ratio 20 Ratio (12-20); Bilirubin,Total 0.5 mg/dL (0.3-1.2); Blood Urea Nitrogen 24 mg/dL (9-23); Calcium 8.8 mg/dL (8.3-10.6); Calcium (Corrected) 9.1 mg/dL (8.5-10.1); Carbon Dioxide 27.5 mMol/L (20.0-31.0); Chloride 101 mMol/L (98-107); Creatinine (Component) 1.2 mg/dL (0.6-1.3); Estimated Creatinine Clearance 40.4 mL/min (>60); Globulin 2.2 gm/dL (2.3-3.5); Glucose 134 mg/dL (74-106); Magnesium 2.1 mg/dL (1.6-2.6); Osmolality,Calculated 279 (275-295); Phosphorous 2.9 mg/dL (2.4-5.1); Sodium 137 mMol/L (136-145); Total Protein 5.8 gm/dL (5.7-8.2); eGFR > 60 See Note
[2024-09-07] MEDS: INSULIN LISPRO (AdmeLOG) 1 UNIT/0.01 ML UNIT 3 UNIT SC ×2 (08:42→12:08)
[2024-09-07] MEDS: amLODIPine BESYLATE 5 MG TABLET PO (08:42)
[2024-09-07] MEDS: TAMSULOSIN HCL 0.4 MG CAPSULE PO (08:42)
[2024-09-07] MEDS: ASPIRIN EC 81 MG TABEC PO (08:42)
[2024-09-07] MEDS: HEPARIN SOD INJ 5000 UNIT/ML VIAL SC ×2 (08:42→21:03)
[2024-09-07] MEDS: CARBIDOPA/LEVODOPA 10/100 MG TABLET 1 TAB PO ×3 (09:26→21:04)
[2024-09-07] MEDS: INSULIN LISPRO (AdmeLOG) 1 UNIT/0.01 ML UNIT SC ×3 (12:07→21:02)
--- NOTE | 2024-09-07 12:12 | ESPR_ITS ---
Documentation for date of: 09/07/24 Subjective Subjective Interval history: Overnight events. Patient denied any chest pain or shortness of breath. Patient denied any headaches (vision patient's glucose has been within normal range for fasting. Home dose of glargine 14 resumed starting tonight. Pending echo. EEG showed abnormal diffuse slow-wave suggesting encephalopathy of metabolic, degenerative, or vascular origin. Home Health Exam Vital Signs Temp Pulse Resp BP Pulse Ox O2 Del Method 97.1 F 64 15 151/75 H 98 Room Air 09/07/24 08:00 09/07/24 09:20 09/07/24 08:00 09/07/24 08:42 09/07/24 08:00 09/07/24 08:00 Narrative Exam General Appearance: Alert & Oriented X2, male who is lying in bed in no acute distress. 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 HEENT: Skull symmetrical and atraumatic. Conjunctivae pin and moist. Pupils equal, round, reactive to light and accommodation (PERRL). External ear without lesion or discharge. Straight, nares patient, mucosa pink, no discharge. No thyroid nodule appreciated. No cervical lymphadenopathy. Cardio: Normal Rate and Rhythm with S1 and S2 heart sounds. No murmurs or extra heart sounds auscultated. No bruits on carotid auscultation. No peripheral edema or cyanosis. Lungs: Symmetric with good expansion. Chest and back non-tender. Breath sounds vesicular without crackles, wheezing or rhonchi Abdomen: Non-tender, Non-distended, Normal Reactive Bowel Sounds Neuro: Yes Alert, Yes cooperative, Yes oriented to person, Yes place, and No time. Speech clear. CN grossly intact. Upper motor strength 4/5 and Lower motor strength 4/5. Sensation intact. Objective Labs 09/07/24 05:35 09/07/24 05:35 Labs: Laboratory Results - last 24 hr 09/07/24 05:35 WBC 5.2 RBC 3.25 L Hgb 10.3 L Hct 28.9 L MCV 89 MCH 31.7 MCHC 35.6 RDW Std Deviation 40.3 Plt Count 173 Neut % (Auto) 58 Lymph % (Auto) 31 [place] % (Auto) 6 Eos % (Auto) 5 Baso % (Auto) 0 Neut # (Auto) 3.0 Lymph # (Auto) 1.6 [place] # (Auto) 0.3 Eos # (Auto) 0.2 Baso # (Auto) 0.0 Immature Gran # (Auto) 0.01 H Absolute Nucleated RBC 0.00 Immature Gran % 0 Nucleated RBC % 0 Sodium 137 Potassium 4.0 Chloride 101 Carbon Dioxide 27.5 Anion Gap 9 BUN 24 H Creatinine 1.2 Estim Creat Clear Calc 40.4 L eGFR > 60 BUN/Creatinine Ratio 20 Glucose 134 H D Calculated Osmolality 279 Calcium 8.8 Corrected Calcium 9.1 Phosphorus 2.9 Magnesium 2.1 Total Bilirubin 0.5 AST 12 ALT 9 L Alkaline Phosphatase 70 Total Protein 5.8 Albumin 3.6 Globulin 2.2 L Albumin/Globulin Ratio 1.6 Quality Measures Quality Measures stroke Suspected type of Stroke: Unknown at this time Last known well (date): 09/04/24 Last known well (time): 18:00 Tenecteplase given: Reason(s) Tenecteplase not given: Uncontrolled BP not given Rehab services: PT evaluation ordered and Speech Language Pathology eval ordered VTE Prophylaxis: pharmaceutical Antithrombotic by day 2:: ordered Statin ordered: >75 y/o moderate or high intensity dose Anticoagulation ordered for A-fib or flutter (current or hx): not indicated and none Advance care planning discussed with:: patient Assessment & Plan Assessment Current Active Medications: Generic Name Dose Route Start Last Admin Trade Name Freq PRN Reason Stop Dose Admin Acetaminophen 650 mg 09/04/24 21:57 09/06/24 20:46 Acetaminophen 325 Mg Tablet PO 10/04/24 21:56 650 mg Q6H PRN Administration Fever >100.3 or pain 1-3 Amlodipine Besylate 5 mg 09/07/24 09:00 09/07/24 08:42 Amlodipine Besylate 5 Mg Tablet PO 10/07/24 08:59 5 mg QDAY KAYLA Administration Aspirin 81 mg 09/05/24 09:00 09/07/24 08:42 Aspirin Ec 81 Mg Tabec PO 10/05/24 08:59 81 mg QDAY KAYLA Administration Atorvastatin Calcium 40 mg 09/05/24 21:00 09/06/24 20:50 Atorvastatin Calcium 20 Mg Tablet PO 10/05/24 20:59 40 mg HS KYALA Administration Carbidopa/Levodopa 1 tab 09/07/24 09:00 09/07/24 09:26 Carbidopa/Levodopa 10/100 Mg Tablet PO 10/07/24 08:59 1 tab TID KAYLA Administration Dextrose 25 ml 09/04/24 22:13 Dextrose 50%-Water Inj 50 Ml Syringe IV 10/04/24 22:12 Q15MIN PRN BG 50-70 responsive npo pt Dextrose 50 ml 09/04/24 22:13 Dextrose 50%-Water Inj 50 Ml Syringe IV 10/04/24 22:12 Q15MIN PRN BG <50 OR BG <70 & pt unresponsive Heparin Sodium (Porcine) 5,000 unit 09/05/24 21:00 09/07/24 08:42 Heparin Sod Inj 5000 Unit/Ml Vial SC 09/19/24 20:59 5,000 unit Q12HR KAYLA Administration Hydralazine HCl 10 mg 09/06/24 18:05 09/06/24 20:46 Hydralazine Inj 20 Mg/Ml Vial IV 10/06/24 18:04 10 mg Q4HR PRN Administration Blood Pressure Insulin Glargine 14 unit 09/07/24 21:00 Insulin Glargine (Lantus) 5 Unit/0.05 Ml (Per 5 Units) KS 10/07/24 20:59 HS KAYLA Insulin Human Lispro 0 unit 09/05/24 11:30 09/07/24 12:07 Insulin Lispro (Admelog) 1 Unit/0.01 Ml Unit SC 10/05/24 11:29 1 unit ACHS KAYLA Administration Protocol Insulin Human Lispro 3 unit 09/06/24 12:00 09/07/24 12:08 Insulin Lispro (Admelog) 1 Unit/0.01 Ml Unit KS 10/06/24 11:59 3 unit TIDWM KAYLA Administration Levothyroxine Sodium 75 mcg 09/05/24 06:00 09/07/24 06:24 Levothyroxine Sodium 25 Mcg Tablet PO 10/05/24 05:59 75 mcg ACBR KAYLA Administration Lorazepam 2 mg 09/05/24 10:00 Lorazepam 2 Mg/Ml Vial IVP 09/10/24 09:59 Q5MIN PRN Seizure Activity Ondansetron HCl 4 mg 09/04/24 21:57 Ondansetron Inj 2 Mg/Ml Inj 2 Ml IV 10/04/24 21:56 Q6H PRN NAUSEA OR VOMITING Protocol Sennosides 1 tab 09/04/24 21:57 Senna Tablet PO 10/04/24 21:56 QDAY PRN constipation Protocol Tamsulosin HCl 0.4 mg 09/05/24 09:00 09/07/24 08:42 Tamsulosin Hcl 0.4 Mg Capsule PO 10/05/24 08:59 0.4 mg QDAY KAYLA Administration Plan Patient is a 78 year old male with a past medical history of HTN, Diabetes Mellitus Type 2-insulin dependent, Hypothyroidism, and Parkinson's Disease who was admitted secondary to acute metabolic encephlopathy for stroke rule out. #Acute Encephlopathy, likely Metabolic, Resolved. #CVA, ruled out. #Upper Weakness Etiology: Given past medical history of diabetes mellitus that is non well controlled, acute encephalopathy likely secondary metabolic causes from hyperglycemia out, but TIA can not be rule out at this time given return to baseline and normal imaging findings. DDx: Seizure to be ruled after EEG. Diagnostics: EEG: EEG is abnormal. Diffuse slowing is suggestive of a diffuse encephalopathy of metabolic, degenerative or vascular orgirin. No epileptiform discharges noted. Utox negative; Ethanol level negative Folate >24, Vitamin B12 553 -MRI brain w/o contrast: Negative for acute hemorrhage mass effect or midline shift. No acute infarct Head CT Negative for acute hemorrhage, mass effect or midline shift Head/Neck CTA: No cerebral large vessel Plan: -Echo w/ bubble study Pending -Aspirin 81 mg Qday -Aspiration Precautions, Head of bed 30 degrees -Acetaminophen PRN -Physical Therapy--Home health & Speech (dysphagia diet type 1) -Consult Neurology, appreciate Recommendation Dr. Montoya #[place], improving No baseline for patient. Cr level of 1.5, BUN 30, GFR 48, and CrCl 33. Pre-renal [place] likely given patient BUN/Cr >20 and elevated BUN. DDx: Consider CKD given long standing history of diabetes and elevated protein in urine vs obstructive given history of Tamsulosin use but less likely. Plan -encougage hydration -consider normal saline -avoid nephrotoxins -renally dose medication #Diabetes Mellitus Type 2 Insulin Dependent #Hyperglycemia, resolved. Patient has a long standing history of diabetes mellitus type 2 insulin dependent. Home medication of Glargine 14 units and metformin 1,000 mg PO BID. Diagnostics:Fasting Glucose on admission 386 w/ fasting glucose (09/05/2024) 155; A1c 10.8 (09/05/2024) Plan: -Consider holding Metfomrin on discharge given GFR of 48, consider CGM on discharge -Monitor Fasting Blood Glucose -Glargine 14 units HS -Lispro 3 units TID -Sliding Scale #History Hypertension Patient has a past medical history of hypertension, currently no anti- hypertensive medication listed in home medication. Please allow for permissive hypertension. Plan -Amlodipine 5 mg QDay -Hydralazine 10 mg IVP Q4HR if blood pressure >160/110, please make sure heart rate is <90 #Parkinson's Disease Patient has a history of Parkinson's Disease, no medication on board. Plan No acute intervention, please follow up with neurology as outpatient. -Neurology consulted, appreciated recommendations. #Hypothyroidism Past medical history of hypothyroidism with Levothyroxine 75 mcg PO ACBR. Diagnostics: TSH 2.97 (September 2024). Plan: -Continue home medication, Levothyroxine 75 mcg PO ACBR #Normocytic Anemia Given MCV within normal range, anemia is likley secondary to chronic disease secondary to Diabetes Mellitus Vs low EPO if CKD present Vs iron deficieny Plan -continue to monitor Hgb -consider iron panel -consider EPO as outpatient. #BPH Continue home dose of Tamsulosin #Hypertensive Emergency, Resolved #Allow for Permissive Hypertension, Resolved. Health Maintenance: Disp: Pt is currently admitted to floors for further management of stroke rule out-->Echo and EEG FEN: Dysphagia Diet 1-Pureed DVT: on subQ heparin Q12HR Code: Full Code - The patient's plan was discussed with attending Dr. Tess Bynum MD PGY1 Internal Medicine Attending Provider Attestation/Addendum I have discussed and was present for the essential components of the history, physical examination, diagnosis, and treatment plan with the resident. I agree with the patient's care as documented by the resident and amended herein by me. Robby Pulido DO. Patient seen and evaluated this AM. Echo pending, likely discharge after results. Although this document has been carefully reviewed, there may still be some phonetic and other typographical errors. These errors are purely grammatical due to imperfections in the software program and should not be construed in any way to compromise the substance of the patient's medical care during this visit.
[2024-09-07] MEDS: INSULIN LISPRO (AdmeLOG) 1 UNIT/0.01 ML UNIT 4 UNIT SC (17:38)
[2024-09-07] MEDS: ATORVASTATIN CALCIUM 20 MG TABLET 40 MG PO (21:03)
[2024-09-07] MEDS: SENNA TABLET 1 TAB PO (21:03)
[2024-09-07] MEDS: INSULIN GLARGINE (Lantus) 5 UNIT/0.05 ML (PER 5 UNITS) 14 UNIT SC (21:09)
[2024-09-08] VITALS: BP 127/65; PULSE 64; PULSE 65; RESP 13; TEMP 36.7; O2SAT 98
[2024-09-08 04:00] VITALS: BP 146/79; PULSE 60; PULSE 61; RESP 13; TEMP 36.4; O2SAT 99
[2024-09-08] MEDS: CARBIDOPA/LEVODOPA 10/100 MG TABLET 1 TAB PO ×2 (05:34→14:06)
[2024-09-08] MEDS: LEVOTHYROXINE SODIUM 25 MCG TABLET 75 MCG PO (05:34)
[2024-09-08 05:36] LABS: Basophils % (Auto) 1 % (0-2.5); Eosinophils # (Auto) 0.3 Thou/mm3 (0.0-0.5); Eosinophils % (Auto) 6 % (0-10); Hematocrit 29.3 % (41.0-53.0); Hemoglobin 10.1 g/dL (13.5-16.0); Immature Granulocytes % (Auto) 0 % (0-0); Immature Granulocytes Auto 0.01 Thou/mm3 (0.00-0.00); Lymphocytes # (Auto) 1.5 Thou/mm3 (1.0-4.8); Lymphocytes % (Auto) 31 % (10-50); Mean Corpuscular HGB Conc 34.5 g/dl (31.0-37.0); Mean Corpuscular Hemoglobin 30.9 pg (25.0-35.0); Mean Corpuscular Volume 90 fL (80-100); Monocytes # (Auto) 0.3 Thou/mm3 (0.0-0.8); Monocytes % (Auto) 6 % (0-12); Neutrophils # (Auto) 2.7 Thou/mm3 (1.8-7.7); Neutrophils % (Auto) 56 % (37-80); Nucleated Red Blood Cell % 0 /100 WBC (0); Platelet Count 208 Thou/mm3 (140-440); RDW Standard Deviation 41.5 fL (35.1-43.9); Red Blood Count 3.27 Miln/mm3 (4.50-5.90); White Blood Count 4.8 Thou/mm3 (3.8-10.6)
[2024-09-08 06:00] VITALS: BMI 24.0
[2024-09-08 06:07] LABS: Alanine Aminotransferase < 7 U/L (10-49); Albumin, Serum 3.5 gm/dL (3.4-4.8); Albumin/Globulin Ratio 1.6 (1.2-2.2); Alkaline Phosphatase 71 U/L (46-116); Anion Gap 8 (7-16); Aspartate Amino Transferase 13 U/L (0-34); BUN/Creatinine Ratio 20 Ratio (12-20); Bilirubin,Total 0.4 mg/dL (0.3-1.2); Blood Urea Nitrogen 26 mg/dL (9-23); Calcium 8.6 mg/dL (8.3-10.6); Carbon Dioxide 28.2 mMol/L (20.0-31.0); Chloride 103 mMol/L (98-107); Creatinine (Component) 1.3 mg/dL (0.6-1.3); Estimated Creatinine Clearance 37.3 mL/min (>60); Globulin 2.2 gm/dL (2.3-3.5); Glucose 118 mg/dL (74-106); Magnesium 2.1 mg/dL (1.6-2.6); Osmolality,Calculated 283 (275-295); Phosphorous 2.9 mg/dL (2.4-5.1); Potassium 3.9 mMol/L (3.4-5.1); Sodium 139 mMol/L (136-145); Total Protein 5.7 gm/dL (5.7-8.2); eGFR 57 See Note
[2024-09-08 08:00] VITALS: BP 140/66; PULSE 58; PULSE 61; RESP 15; TEMP 36.2; O2SAT 99
[2024-09-08 08:11] VITALS: BP 140/66; PULSE 60
[2024-09-08] MEDS: TAMSULOSIN HCL 0.4 MG CAPSULE PO (08:11)
[2024-09-08] MEDS: amLODIPine BESYLATE 5 MG TABLET PO (08:11)
[2024-09-08] MEDS: HEPARIN SOD INJ 5000 UNIT/ML VIAL SC (08:11)
[2024-09-08] MEDS: ASPIRIN EC 81 MG TABEC PO (08:11)
[2024-09-08] MEDS: INSULIN LISPRO (AdmeLOG) 1 UNIT/0.01 ML UNIT SC (11:34)
[2024-09-08] MEDS: INSULIN LISPRO (AdmeLOG) 1 UNIT/0.01 ML UNIT 4 UNIT SC (11:34)
[2024-09-08 12:00] VITALS: BP 160/62; PULSE 61; PULSE 68; RESP 15; TEMP 36.4; O2SAT 96
--- NOTE | 2024-09-08 17:30 | ESDS_ITS ---
Planned Discharge Date 09/08/24 DS: Providers Provider Date of admission: 09/04/24 21:55 Primary care physician: Physician No Primary/Family Admitting Provider: Coby Orta MD Attending Provider on Admission: Edgar Pulido DO Consults: 09/04/24 19:22 Consult to Neurology / Tele-Neurology Routine Comment: Consulting Provider: [facility] 09/04/24 19:23 Consult to Neurology / Tele-Neurology Routine Comment: Consulting Provider: [facility] 09/04/24 21:57 Referral Physical Therapy Routine Comment: Physician Instructions: Referral Speech Therapy Routine Comment: 09/04/24 22:54 Consult to Neurology / Tele-Neurology Routine Comment: AMS Consulting Provider: Donis Montoya 09/05/24 09:00 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 CT and head and neck CTA was ordered which showed no acute hemorrhage and no large cerebral vessel occlusion. MRI brain without contrast was ordered which was negative for acute stroke. EEG was done due to encephalopathy, showed diffuse slowing changes consistent with encephalopathy. No epileptiform discharge noted. Neurologist Dr. Montoya was consulted follow the patient, recommended starting the patient on aspirin and atorvastatin and following up with MRI and echocardiogram. Echocardiogram with bubble study was negative for PFO. Patient also had minimal [place] on presentation, which improved with hydration. The patient is stable, afebrile and tolerating Per oral medications at the time of discharge. The patient understood and agreed to the treatment plan. Follow up with Primary care physician with labs within 3-5 days of discharge. If symptoms persist or worsen, return to the Emergency Department. #Acute Encephlopathy, likely Metabolic, Resolved. #CVA, ruled out. #Upper Weakness Etiology: Given past medical history of diabetes mellitus that is non well controlled, acute encephalopathy likely secondary metabolic causes from hyperglycemia out, but TIA can not be rule out at this time given return to baseline and normal imaging findings. DDx: Seizure to be ruled after EEG. Diagnostics: EEG: EEG is abnormal. Diffuse slowing is suggestive of a diffuse encephalopathy of metabolic, degenerative or vascular orgirin. No epileptiform discharges noted. Utox negative; Ethanol level negative Folate >24, Vitamin B12 553 -MRI brain w/o contrast: Negative for acute hemorrhage mass effect or midline shift. No acute infarct Head CT Negative for acute hemorrhage, mass effect or midline shift Head/Neck CTA: No cerebral large vessel Plan: -Echo w/ bubble study Pending -Aspirin 81 mg Qday -Aspiration Precautions, Head of bed 30 degrees -Acetaminophen PRN -Physical Therapy--Home health & Speech (dysphagia diet type 1) -Consult Neurology, appreciate Recommendation Dr. Montoya #[place], improving No baseline for patient. Cr level of 1.5, BUN 30, GFR 48, and CrCl 33. Pre-renal [place] likely given patient BUN/Cr >20 and elevated BUN. DDx: Consider CKD given long standing history of diabetes and elevated protein in urine vs obstructive given history of Tamsulosin use but less likely. Plan -encougage hydration -consider normal saline -avoid nephrotoxins -renally dose medication #Diabetes Mellitus Type 2 Insulin Dependent #Hyperglycemia, resolved. Patient has a long standing history of diabetes mellitus type 2 insulin dependent. Home medication of Glargine 14 units and metformin 1,000 mg PO BID. Diagnostics:Fasting Glucose on admission 386 w/ fasting glucose (09/05/2024) 155; A1c 10.8 (09/05/2024) Plan: -Consider holding Metfomrin on discharge given GFR of 48, consider CGM on discharge -Monitor Fasting Blood Glucose -Glargine 14 units HS -Lispro 3 units TID -Sliding Scale #History Hypertension Patient has a past medical history of hypertension, currently no anti- hypertensive medication listed in home medication. Please allow for permissive hypertension. Plan -Amlodipine 5 mg QDay -Hydralazine 10 mg IVP Q4HR if blood pressure >160/110, please make sure heart rate is <90 #Parkinson's Disease Patient has a history of Parkinson's Disease, no medication on board. Plan No acute intervention, please follow up with neurology as outpatient. -Neurology consulted, appreciated recommendations. #Hypothyroidism Past medical history of hypothyroidism with Levothyroxine 75 mcg PO ACBR. Diagnostics: TSH 2.97 (September 2024). Plan: -Continue home medication, Levothyroxine 75 mcg PO ACBR #Normocytic Anemia Given MCV within normal range, anemia is likley secondary to chronic disease secondary to Diabetes Mellitus Vs low EPO if CKD present Vs iron deficieny Plan -continue to monitor Hgb -consider iron panel -consider EPO as outpatient. #BPH Continue home dose of Tamsulosin #Hypertensive Emergency, Resolved #Allow for Permissive Hypertension, Resolved. Health Maintenance: Disp: Pt is currently admitted to floors for further management of stroke rule out-->Echo and EEG FEN: Dysphagia Diet 1-Pureed DVT: on subQ heparin Q12HR Code: Full Code - The patient's plan was discussed with attending Dr. Tess Arias pgy2 Status at Discharge Overall status at discharge: patient is progressing back to baseline Time Spent with Patient Time attestation: Total time spent providing and/or coordinating discharge services: 30 minutes Home Health Home Health Referral Orders: 09/07/24 08:12 Home Health Referral Routine Reason For Exam: debiltiy Home-Bound The patient must either because of illness or injury, need the aid of suppor tive devices such as crutches, canes, wheelchairs, and walkers; the use of special transportation; or the assistance of another person in order to leave their place of residence; OR have a conditi on such that leaving his or her home is medically contraindicated. In addition, the patient also meets the following criteria: patient is normally unable to leave the home and leaving home requires considerable taxing effort. Addendum to Home Health Certification Practitioner's Certification: I certify that the patient has been under my care in the hospital and the care of attending physician (see below). We had a [id number] encounter on (see date below). My clinical findings indicate that the patient is home bound per the above criteria and the Home Health Services noted in these orders are medically necessary. The primary reason for the [id number] encounter is related to the fact that the patient requires home health services. 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 Wound Care: No IV Therapy: No Discontinue PICC Line Once Treatment Complete: No RN Safety Evaluation: Yes RN to evaluate and create a plan of care that will produce positive outcomes. Palliative Treatment: No Palliative treatment and evaluate the need for hospice. Home Health Aide - Personal Care: No Home Health Aide to assist with any ADL's. Exam Vital Signs Temp Pulse Resp BP Pulse Ox O2 Del Method 97.5 F 61 15 160/62 H 96 Room Air 09/08/24 12:00 09/08/24 12:00 09/08/24 12:00 09/08/24 12:09/08/24 12:09/08/24 12:00 Narrative Exam General Appearance: Alert & Oriented X2, male who is lying in bed in no acute distress. 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 HEENT: Skull symmetrical and atraumatic. Conjunctivae pin and moist. Pupils equal, round, reactive to light and accommodation (PERRL). External ear without lesion or discharge. Straight, nares patient, mucosa pink, no discharge. No thyroid nodule appreciated. No cervical lymphadenopathy. Cardio: Normal Rate and Rhythm with S1 and S2 heart sounds. No murmurs or extra heart sounds auscultated. No bruits on carotid auscultation. No peripheral edema or cyanosis. Lungs: Symmetric with good expansion. Chest and back non-tender. Breath sounds vesicular without crackles, wheezing or rhonchi Abdomen: Non-tender, Non-distended, Normal Reactive Bowel Sounds Neuro: Yes Alert, Yes cooperative, Yes oriented to person, Yes place, and No time. Speech clear. CN grossly intact. Upper motor strength 4/5 and Lower motor strength 4/5. Sensation intact. Discharge Plan Plan Patient Disposition: Home w/HOME HEALTH Care Plan Goals: -Please follow up with your primary care provider within one week of discharge -Please follow up with neurology for history of Parkinsons disease - Dr Montoya's office , please call for appointment -If your symptoms worsen,please seek immediate medical attention and return to your nearest emergency room -If you do not have a primary care provider, you may follow up at the [facility] at [address], [place] [address], Safe for discharge w/ home health Prescriptions/Referrals Prescriptions/Med Rec: New amlodipine 10 mg tablet 10 mg PO QDAY Qty: 30 0RF atorvastatin 20 mg Tablet 40 mg PO HS 30 Days Qty: 60 0RF aspirin [Ecotrin Low Strength] 81 mg Tablet,Delayed Release (Dr/Ec) 81 mg PO QDAY Qty: 30 0RF Continued levothyroxine [Euthyrox] 75 mcg tablet 75 mcg PO QDAY tamsulosin 0.4 mg capsule 0.4 mg PO QDAY metformin 1,000 mg tablet 1,000 mg PO BID folic acid 1 mg tablet 1 mg PO QDAY ergocalciferol (vitamin D2) [Vitamin D2] 1,250 mcg (50,000 unit) capsule 1,250 mcg PO QDAY hydroxyzine HCl 25 mg tablet 25 mg PO BID insulin glargine [Lantus Solostar U-100 Insulin] 100 unit/mL (3 mL) insulin pen 14 unit subcut QPM insulin lispro [Humalog KwikPen Insulin] 100 unit/mL insulin pen 1 sliding scale dose subcut USEASDIRECTD Referrals: No Primary/Family,Physician [Primary Care Provider] - Patient/Caregiver Discharge Instructions Print Language: Turkmen Stand Alone Forms: Eva Award Info., Patient Portal Info Letter Discharge Order Discharge Orders: Discharge (Routine); Ordered 09/08/24 Ordered By: Edgar Pulido Quality Discharge Quality Measures VTE prophylaxis Attestestation MD Attestation I have discussed and was present for the essential components of the discharge history, physical examination, diagnosis, and discharge treatment plan with the resident. I agree with the patient's discharge care as documented by the resident and amended herein by me. Robby Pulido, DO. The patient understood all discharge instructions, all questions were answered satisfactorily. The patient was instructed to return to the Emergency Department is symptoms worsened or persisted. Patient was stable, afebrile and tolerating p.o. intake at time of discharge home. Although this document has been carefully reviewed, there may still be some phonetic and other typographical errors. These errors are purely grammatical due to imperfections in the software program and should not be construed in any way to compromise the substance of the patient's medical care during this visit.
--- NOTE | 2024-09-09 07:24 | PC.CC ---
Addendum entered by Cindi Soto RN 09/09/24 08:00: [facility] accepted [facility] pt. [facility]ed [facility]. Start of care date is 09/10/2024. Original Note: No documentation from [facility] on pt preference for HH agency.HH referral sent on [facility]. Awaiting responses. Pending start of care date.
== END 2024-09-08 15:25 | disposition home health service (06) | DRG 69 ==
LOC: SERX 21:44 → SERHOLD 22:07 → S2NX 09-05 00:08
PROVIDERS: Admitting Provider Student in an Organized Health Care Education/Training Program; Emergency Provider Emergency Medicine; Visit Provider Student in an Organized Health Care Education/Training Program
DX: G45.9 Transient cerebral ischemic attack, unspecified (principal); G93.41 Metabolic encephalopathy; I16.1 Hypertensive emergency; N17.9 Acute kidney failure, unspecified; G20.A1 Parkinson's disease without dyskinesia, without mention of fluctuations; I10 Essential (primary) hypertension; E03.9 Hypothyroidism, unspecified; N40.1 Benign prostatic hyperplasia with lower urinary tract symptoms; R33.8 Other retention of urine; I65.23 Occlusion and stenosis of bilateral carotid arteries; K52.89 Other specified noninfective gastroenteritis and colitis; F41.9 Anxiety disorder, unspecified; D63.8 Anemia in other chronic diseases classified elsewhere; E11.65 Type 2 diabetes mellitus with hyperglycemia; H40.9 Unspecified glaucoma; R09.02 Hypoxemia; E78.00 Pure hypercholesterolemia, unspecified; R32 Unspecified urinary incontinence; Z89.431 Acquired absence of right foot; Z79.84 Long term (current) use of oral hypoglycemic drugs; Z89.512 Acquired absence of left leg below knee; Z91.81 History of falling; Z79.899 Other long term (current) drug therapy; Z79.890 Hormone replacement therapy; Z79.4 Long term (current) use of insulin
CPT/HCPCS: 36415; 70450; 70496; 70498; 70544; 80053; 80061; 80307; 80320; 81001; 82043; 82570; 82607; 82746; 83036; 83735; 83880; 84100; 84439; 84443; 84484; 84703; 85025; 85610; 85730; 87086; 92526; 92610; 93005; 93306; 95816; 96372; 96374; 97162; 99291; A4649; J0360; J1643; J1815; J2060; Q9967; A9270; G0480